=== PATIENT | female | born 1925 | race Caucasian/White ===

== ENCOUNTER 2016-09-04 03:36 | Inpatient (IN) | payer OTHER, MEDICARE ==
[~2016-09-04] VITALS: Ht 157.5 cm; Wt 49.2 kg
[2016-09-04 04:02] VITALS: BP 194/93; PULSE 63; RESP 16; TEMP 97.6; O2SAT 98
[2016-09-04] MEDS ORDERED: ROSU1TAB6 PO (04:11)
[2016-09-04] MEDS ORDERED: LEVO.05 PO (04:11)
[2016-09-04] MEDS ORDERED: ATEN25TA PO (04:11)
[2016-09-04] MEDS ORDERED: ASPI81CH25 PO (04:11)
--- NOTE | 2016-09-04 04:16 | PD ---
HPI Chief Complaint: Medical Clearance Time Seen by Provider: 04:12 Travel History International Travel<30 days: No Contact w/Intl Traveler<30days: No Traveled to known affect area: No History of Present Illness HPI 89-year-old white female presents to emergency department from [employer] for evaluation under and EXPARTE. The patient's daughter went to the courts and had an EXPARTE written up for psychological evaluation/dementia. The patient allegedly has been noncompliant. There is concern that she is not able to care for herself. Patient has a history of coronary artery disease, TIA, hypercholesterolemia, hypothyroidism and hypertension. According to EXPARTE the patient's mental status has been declining after having bypass surgery a few years ago. She states that she lives alone. She does not typically cook. She eats small frequent meals. The patient denies any medical complaints. She denies any suicidal or homicidal ideation. PFSH Past Medical History Narrative Medical Coronary artery disease, hypercholesterolemia, hypertension, hypothyroidism, dementia Tetanus Vaccination: Unknown Past Surgical History Narrative Surgical Coronary artery bypass graft Social History Alcohol Use: Yes Tobacco Use: No Substance Use: No Allergies-Medications (Allergen,Severity, Reaction): Coded Allergies: No Known Allergies (Unverified , 09/04/16) Reported Meds & Prescriptions Reported Meds & Active Scripts Active Cipro (Ciprofloxacin HCl) 250 Mg Tab 250 Mg PO BID Reported Aspirin Low Strength (Aspirin) 81 Mg Chew 81 Mg PO Rosuvastatin (Rosuvastatin Calcium) 10 Mg Tab 10 Mg PO HS Atenolol 25 Mg Tab 25 Mg PO DAILY Synthroid (Levothyroxine Sodium) 50 Mcg Tab 50 Mcg PO DAILY Review of Systems Except as stated in HPI: all other systems reviewed are Neg General / Constitutional: No: Fever, Chills Eyes: No: Blurred Vision, Visual changes HENT: No: Headaches, Neck Pain Cardiovascular: No: Chest Pain or Discomfort, Palpitations Respiratory: No: Cough, Shortness of Breath Gastrointestinal: No: Nausea, Vomiting Genitourinary: No: Dysuria, Hematuria Musculoskeletal: No: Edema, Pain Skin: No Rash Neurologic: No: Weakness, Headache Psychiatric: No: Anxiety, Depression, Suicidal Ideations, Disorder of Thought, Mood Disorder, Substance Abuse, Homicidal Ideation Physical Exam Narrative GENERAL: Well-nourished, well-developed patient. SKIN: Warm and dry. HEAD: Normocephalic and atraumatic. EYES: No scleral icterus. No injection or drainage. ENT: No nasal drainage noted. Mucous membranes pink. Airway patent. NECK: Supple, trachea midline. Moves head freely without obvious discomfort. CARDIOVASCULAR: Regular rate and rhythm without murmurs, gallops, or rubs. RESPIRATORY: Breath sounds equal bilaterally. No accessory muscle use. GASTROINTESTINAL: Abdomen soft, non-tender, nondistended. EXTREMITIES: No cyanosis or edema. BACK: Nontender without obvious deformity. No CVA tenderness. NEURO: Patient is alert and oriented. Patient knows the president, the year and date of the week. No sensorimotor deficits. Nonfocal. Normal speech. PSYCH: No delusions. No auditory or visual hallucinations. Data Data Last Documented VS Vital Signs Date Time Temp Pulse Resp B/P Pulse Ox O2 Delivery O2 Flow Rate FiO2 09/04/16 04:02 97.6 63 16 194/93 98 Orders Complete Blood Count With Diff (09/04/16 04:11) Comprehensive Metabolic Panel (09/04/16 04:11) Thyroid Stimulating Hormone (09/04/16 04:11) Urinalysis - C+S If Indicated (09/04/16 04:11) Electrocardiogram (09/04/16 04:11) Psych Screen (09/04/16 04:11) Drug Screen, Random Urine (09/04/16 04:11) Alcohol (Ethanol) (09/04/16 04:11) Urine Culture (09/04/16 04:40) Ciprofloxacin (Cipro) (09/04/16 05:45) Labs Laboratory Tests Test 09/04/16 09/04/16 04:27 04:40 White Blood Count 7.0 TH/MM3 Red Blood Count 4.55 MIL/MM3 Hemoglobin 13.1 GM/DL Hematocrit 39.1 % Mean Corpuscular Volume 86.0 FL Mean Corpuscular Hemoglobin 28.7 PG Mean Corpuscular Hemoglobin 33.4 % Concent Red Cell Distribution Width 14.8 % Platelet Count 174 TH/MM3 Mean Platelet Volume 10.2 FL Neutrophils (%) (Auto) 50.1 % Lymphocytes (%) (Auto) 34.8 % Monocytes (%) (Auto) 10.0 % Eosinophils (%) (Auto) 4.0 % Basophils (%) (Auto) 1.1 % Neutrophils # (Auto) 3.5 TH/MM3 Lymphocytes # (Auto) 2.4 TH/MM3 Monocytes # (Auto) 0.7 TH/MM3 Eosinophils # (Auto) 0.3 TH/MM3 Basophils # (Auto) 0.1 TH/MM3 CBC Comment DIFF FINAL Differential Comment Sodium Level 145 MEQ/L Potassium Level 3.9 MEQ/L Chloride Level 107 MEQ/L Carbon Dioxide Level 30.1 MEQ/L Anion Gap 8 MEQ/L Blood Urea Nitrogen 17 MG/DL Creatinine 1.05 MG/DL Estimat Glomerular Filtration 49 ML/MIN Rate Random Glucose 99 MG/DL Calcium Level 9.3 MG/DL Total Bilirubin 0.5 MG/DL Aspartate Amino Transf 21 U/L (AST/SGOT) Alanine Aminotransferase 16 U/L (ALT/SGPT) Alkaline Phosphatase 113 U/L Total Protein 7.4 GM/DL Albumin 3.7 GM/DL Thyroid Stimulating Hormone 3.930 uIU/ML 3rd Gen Ethyl Alcohol Level LESS THAN 3 MG/DL Urine Color YELLOW Urine Turbidity HAZY Urine pH 6.5 Urine Specific [place] 1.023 Urine Protein TRACE mg/dL Urine Glucose (UA) NEG mg/dL Urine Ketones NEG mg/dL Urine Occult Blood NEG Urine Nitrite NEG Urine Bilirubin NEG Urine Urobilinogen 2.0 MG/DL Urine Leukocyte Esterase LARGE Urine RBC 6 /hpf Urine WBC 44 /hpf Urine Squamous Epithelial 9 /hpf Cells Urine Transitional Epithelial <1 /hpf Cells Urine Bacteria RARE /hpf Urine Hyaline Casts 3 /lpf Urine Mucus FEW /lpf Microscopic Urinalysis Comment CULTURE INDICATED Urine Opiates Screen NEG Urine Barbiturates Screen NEG Urine Amphetamines Screen NEG Urine Benzodiazepines Screen NEG Urine Cocaine Screen NEG Urine Cannabinoids Screen NEG [facility] Medical Decision Making Medical Screen Exam Complete: Yes Emergency Medical Condition: Yes Medical Record Reviewed: Yes Interpretation(s) Laboratory Tests Test 09/04/16 09/04/16 04:27 04:40 White Blood Count 7.0 TH/MM3 Red Blood Count 4.55 MIL/MM3 Hemoglobin 13.1 GM/DL Hematocrit 39.1 % Mean Corpuscular Volume 86.0 FL Mean Corpuscular Hemoglobin 28.7 PG Mean Corpuscular Hemoglobin 33.4 % Concent Red Cell Distribution Width 14.8 % Platelet Count 174 TH/MM3 Mean Platelet Volume 10.2 FL Neutrophils (%) (Auto) 50.1 % Lymphocytes (%) (Auto) 34.8 % Monocytes (%) (Auto) 10.0 % Eosinophils (%) (Auto) 4.0 % Basophils (%) (Auto) 1.1 % Neutrophils # (Auto) 3.5 TH/MM3 Lymphocytes # (Auto) 2.4 TH/MM3 Monocytes # (Auto) 0.7 TH/MM3 Eosinophils # (Auto) 0.3 TH/MM3 Basophils # (Auto) 0.1 TH/MM3 CBC Comment DIFF FINAL Differential Comment Sodium Level 145 MEQ/L Potassium Level 3.9 MEQ/L Chloride Level 107 MEQ/L Carbon Dioxide Level 30.1 MEQ/L Anion Gap 8 MEQ/L Blood Urea Nitrogen 17 MG/DL Creatinine 1.05 MG/DL Estimat Glomerular Filtration 49 ML/MIN Rate Random Glucose 99 MG/DL Calcium Level 9.3 MG/DL Total Bilirubin 0.5 MG/DL Aspartate Amino Transf 21 U/L (AST/SGOT) Alanine Aminotransferase 16 U/L (ALT/SGPT) Alkaline Phosphatase 113 U/L Total Protein 7.4 GM/DL Albumin 3.7 GM/DL Thyroid Stimulating Hormone 3.930 uIU/ML 3rd Gen Ethyl Alcohol Level LESS THAN 3 MG/DL Urine Color YELLOW Urine Turbidity HAZY Urine pH 6.5 Urine Specific [place] 1.023 Urine Protein TRACE mg/dL Urine Glucose (UA) NEG mg/dL Urine Ketones NEG mg/dL Urine Occult Blood NEG Urine Nitrite NEG Urine Bilirubin NEG Urine Urobilinogen 2.0 MG/DL Urine Leukocyte Esterase LARGE Urine RBC 6 /hpf Urine WBC 44 /hpf Urine Squamous Epithelial 9 /hpf Cells Urine Transitional Epithelial <1 /hpf Cells Urine Bacteria RARE /hpf Urine Hyaline Casts 3 /lpf Urine Mucus FEW /lpf Microscopic Urinalysis Comment CULTURE INDICATED Urine Opiates Screen NEG Urine Barbiturates Screen NEG Urine Amphetamines Screen NEG Urine Benzodiazepines Screen NEG Urine Cocaine Screen NEG Urine Cannabinoids Screen NEG Differential Diagnosis MDM: High Differential diagnoses: Schizophrenia, schizoaffective disorder, bipolar, anxiety, depression, adjustment reaction, mood disorder NOS, ODD, depressive disorder NOS, dementia, dementia with agitation, psychosis NOS, substance induced mood disorder, intermittent explosive disorder, Asperger syndrome, infection,electrolyte abnormality, malingering. Narrative Course Mental health screening discussed with the patient. Psychiatric screen ordered. The patient is been medically cleared. Her urinalysis reveals a UTI. Patient is given Cipro 250 by mouth prescription for additional 3 days. This is medical clearance exam, EXPARTE, UTI Diagnosis Primary Impression: Medical clearance for psychiatric admission Additional Impressions: EXPARTE Urinary tract infection Qualified Code: N39.0 - Urinary tract infection without hematuria, site unspecified Med/Other Pt SpecificInfo: Prescription(s) given Scripts Ciprofloxacin (Cipro)250 Mg [id number] Mg PO BID #6 TAB Ref 0 Prov:Anil Pereyra MD 09/04/16 Condition: Stable Alejandro Saleh September 04, 2016 04:16
[2016-09-04 04:43] LABS: AUTOMATED NEUTROPHIL # 3.5 TH/MM3 (1.8-7.7); BASOPHIL # 0.1 TH/MM3 (0-0.2); BASOPHIL % 1.1 % (0.0-2.0); EOSINOPHIL # 0.3 TH/MM3 (0-0.4); HEMATOCRIT 39.1 % (35.0-46.0); HEMO FLAGS DIFF FINAL; LYMPH % 34.8 % (9.0-44.0); LYMPHOCYTE # 2.4 TH/MM3 (1.0-4.8); MEAN CORPUSCULAR HEMOGLOBIN 28.7 PG (27.0-34.0); MEAN CORPUSCULAR HGB CONC 33.4 % (32.0-36.0); NEUT % 50.1 % (16.0-70.0); PLATELET COUNT 174 TH/MM3 (150-450); RED BLOOD COUNT 4.55 MIL/MM3 (4.00-5.30); RED CELL DISTRIBUTION WIDTH 14.8 % (11.6-17.2)
[2016-09-04 04:57] LABS: ALT (GPT) 16 U/L (10-53); ANION GAP 8 MEQ/L (5-15); AST (GOT) 21 U/L (15-37); BICARBONATE 30.1 MEQ/L (21.0-32.0); BLOOD UREA NITROGEN 17 MG/DL (7-18); CHLORIDE 107 MEQ/L (98-107); GLOMERULAR FILTRATION RATE 49 ML/MIN (>89); POTASSIUM 3.9 MEQ/L (3.5-5.1); SODIUM (NA) 145 MEQ/L (136-145)
[2016-09-04 05:06] LABS: BACTERIA, URINE RARE /hpf; BLOOD, URINE NEG (NEG); COMMENT (UR) CULTURE INDICATED; CULTURE IF INDICATED CULTURE INDICATED; GLUCOSE,URINE NEG (NEG); HYALINE CAST, URINE 3 /lpf (RARE); KETONE, URINE NEG (NEG); MUCUS URINE FEW /lpf (OCC); NITRITE,URINE NEG (NEG); PH, URINE 6.5 (5.0-8.5); SQUAMOUS EPITHELIAL CELL URINE 9 /hpf (0-5); TRANSITIONAL EPI CELLS, URINE <1 /hpf; URINE COLOR YELLOW (YELLW/STRAW)
[2016-09-04 05:07] LABS: ALKALINE PHOSPHATASE 113 U/L (45-117); TOTAL BILIRUBIN ADULT 0.5 MG/DL (0.2-1.0)
[2016-09-04 05:09] LABS: AMPHETAMINE, URINE NEG (NEG); BARBITURATES, URINE NEG (NEG); COCAINE, URINE NEG (NEG)
[2016-09-04] MEDS ORDERED: CIPR250T52 PO (05:41)
[2016-09-04] MEDS ORDERED: CIPROFLOXACIN 250 MG TAB PO ONE (05:45)
[2016-09-04 07:08] VITALS: BP 206/91; PULSE 62; RESP 18; O2SAT 97
[2016-09-04] MEDS ORDERED: ATENOLOL 25 MG TAB PO ONE (07:45)
[2016-09-04] MEDS ORDERED: ATENOLOL 50 MG TAB PO ONE (07:45)
--- NOTE | 2016-09-04 08:52 | EKG ---
Date Performed: 09/04/2016 Time Performed: 04:29:28 PTAGE: 89 years EKG: Sinus rhythm LEFT VENTRICULAR HYPERTROPHY AND ST-T CHANGE ABNORMAL ECG NO PREVIOUS TRACING DOCTOR: Isaak Mi Interpretating Date/Time 09/04/2016 08:51:28
--- NOTE | 2016-09-04 11:12 | PD ---
History of Present Illness Chief Complaint: Medical Clearance Time Seen by Provider: 10:35 Travel History International Travel<30 Days: No Contact w/Intl Traveler<30days: No Known affected area: No Legal Status Legal Status: Ex Parte History of Present Illness: History of Present Illness HPI 89-year-old white female with reported history of dementia who presents to emergency department under and NOEMÍ. The petition for Ex Partho was initiated by her daughter, Katt. She presented copious documentation to the court presenting her concerns that her mother has been noncompliant with medication and treatment, is not eating and is malnourished, not taking care of her hygiene, not allowing the daughter entrance to her home, is giving her money away to different scammers , and she is fearful that she will hurt someone while she is driving. According to ANSELMOE the patient's mental status has been declining after having bypass surgery a few years ago. Patient is seen in main Ed. Awake , alert and oriented. " September 04, 2016. She is casually and neatly dressed in shorts and sandals with appropriate hygiene. Her speech is clear. She is angry over being here in the hospital and states " I have taken care of myself since I was 18 years old , who says I can't take care of myself now?". She is angry that her doctor wants to take her drivers license away as she believes she can still drive. There is no psychosis and no ag and she has not been agitated. There is documentation in the chart that indicated=s that a neurologist has initiated paperwork to terminate her driving privileges. radha teague has also provided documentation providing a dx of dementia and that her score on a MMSE was a 19. No medication was initiated at the time and his recommendation was that she be placed in a facility. Telephone call to her daughter who filed Ex Partho. 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 " She is demanding that [facility] her mother in a memory unit and that she is concerned that her mother will harm someone while she is driving. " She needs to be admitted for 20 days of care in a memory unit". She has not disabled the car and has not taken her keys away. When I suggest these options the daughter becomes irate and states " She will chai me and take me to court or she will call the [employer] dealer and have her car repaired. When I ask regarding having a home health aide or dragline operator in the home she disagrees with this suggestion sating " She will not allow anyone in her home". The daughter insists that her mother is a danger to herself due to self neglect as well as a danger to others by driving. PFSH Past Medical History Hypertension: Yes Immunizations Current: Yes Thyroid Disease: Yes Tetanus Vaccination: Unknown : 3 Para: 3 Past Surgical History Cardiac Surgery: Yes Psychiatric History Psychiatric History Hx Psychiatric Treatment: negative History of Inpatient Treatment: No Guns or firearms in home: No Social History female. Has been x 2. since 1990. Worked for [employer]. Lives alone. Hx Alcohol Use: Yes Hx Tobacco Use: No Hx Substance Use: No Hx of Substance Use Treatment: No Family Psychiatric History Negative Allergies-Medications (Allergen,Severity, Reaction): Coded Allergies: No Known Allergies (Unverified , 09/04/16) Reported Meds & Prescriptions Reported Meds & Active Scripts Active Cipro (Ciprofloxacin HCl) 250 Mg Tab 250 Mg PO BID Reported Aspirin Low Strength (Aspirin) 81 Mg Chew 81 Mg PO Rosuvastatin (Rosuvastatin Calcium) 10 Mg Tab 10 Mg PO HS Atenolol 25 Mg Tab 25 Mg PO DAILY Synthroid (Levothyroxine Sodium) 50 Mcg Tab 50 Mcg PO DAILY Review of Systems Except as stated in HPI: all other systems reviewed are Neg Exam Alert: Yes [place]: Person, Place, Date, Situation (ox4) Mood: Anxious Affect: Appropriate Speech: Clear, Logical Eye Contact: Normal Memory Intact: Comment (not formally tetsed in main ed setting) Hallucinations: Other (negative) Delusions: No Suicidal: Ideation (deneis any) Homicidal: Ideation (deneis any) Insight/Judgement Poor. poor MDM Medical Decision Making Medical Record Reviewed: Yes Assessment/Plan 89 year old female with no previous psychiatric history and recent dx of dementia who is under an ex parte order . The EX Parte alleges that she has been unable to care for herself as well as a potential danger to others as she refuses to give up her driving privileges. Patient is currently on no medication and may not have been taking her thyroid or antihypertensive medication. She has a UTI as well. At this time she will be admitted for further evaluation and monitoring and to determine safety . Orders Complete Blood Count With Diff (09/04/16 04:11) Comprehensive Metabolic Panel (09/04/16 04:11) Thyroid Stimulating Hormone (09/04/16 04:11) Urinalysis - C+S If Indicated (09/04/16 04:11) Electrocardiogram (09/04/16 04:11) Psych Screen (09/04/16 04:11) Drug Screen, Random Urine (09/04/16 04:11) Alcohol (Ethanol) (09/04/16 04:11) Urine Culture (09/04/16 04:40) Ciprofloxacin (Cipro) (09/04/16 05:45) Atenolol (Tenormin) (09/04/16 07:45) Atenolol (Tenormin) (09/04/16 07:45) Diet Regular Basic (09/04/16 Breakfast) Results Vital Signs Date Time Temp Pulse Resp B/P Pulse Ox O2 Delivery O2 Flow Rate FiO2 09/04/16 07:08 62 18 206/91 97 Room Air 09/04/16 04:02 97.6 63 16 194/93 98 Laboratory Tests Test 09/04/16 09/04/16 04:27 04:40 White Blood Count 7.0 Red Blood Count 4.55 Hemoglobin 13.1 Hematocrit 39.1 Mean Corpuscular Volume 86.0 Mean Corpuscular Hemoglobin 28.7 Mean Corpuscular Hemoglobin 33.4 Concent Red Cell Distribution Width 14.8 Platelet Count 174 Mean Platelet Volume 10.2 Neutrophils (%) (Auto) 50.1 Lymphocytes (%) (Auto) 34.8 Monocytes (%) (Auto) 10.0 Eosinophils (%) (Auto) 4.0 Basophils (%) (Auto) 1.1 Neutrophils # (Auto) 3.5 Lymphocytes # (Auto) 2.4 Monocytes # (Auto) 0.7 Eosinophils # (Auto) 0.3 Basophils # (Auto) 0.1 CBC Comment DIFF FINAL Differential Comment Sodium Level 145 Potassium Level 3.9 Chloride Level 107 Carbon Dioxide Level 30.1 Anion Gap 8 Blood Urea Nitrogen 17 Creatinine 1.05 Estimat Glomerular Filtration 49 Rate Random Glucose 99 Calcium Level 9.3 Total Bilirubin 0.5 Aspartate Amino Transf 21 (AST/SGOT) Alanine Aminotransferase 16 (ALT/SGPT) Alkaline Phosphatase 113 Total Protein 7.4 Albumin 3.7 Thyroid Stimulating Hormone 3.930 3rd Gen Ethyl Alcohol Level LESS THAN 3 Urine Color YELLOW Urine Turbidity HAZY Urine pH 6.5 Urine Specific Issue 1.023 Urine Protein TRACE Urine Glucose (UA) NEG Urine Ketones NEG Urine Occult Blood NEG Urine Nitrite NEG Urine Bilirubin NEG Urine Urobilinogen 2.0 Urine Leukocyte Esterase LARGE Urine RBC 6 Urine WBC 44 Urine Squamous Epithelial 9 Cells Urine Transitional Epithelial <1 Cells Urine Bacteria RARE Urine Hyaline Casts 3 Urine Mucus FEW Microscopic Urinalysis Comment CULTURE INDICATED Urine Opiates Screen NEG Urine Barbiturates Screen NEG Urine Amphetamines Screen NEG Urine Benzodiazepines Screen NEG Urine Cocaine Screen NEG Urine Cannabinoids Screen NEG Date/Time Procedure Status Source Growth 09/04/16 04:40 Urine Culture Received Urine Random Urine Pending Diagnosis Primary Impression: EXPARTE Additional Impression: Dementia without behavioral disturbance Admitting Information Admitting Physician Requests: Admit Prescriptions Ciprofloxacin (Cipro)250 Mg [id number] Mg PO BID #6 TAB Ref 0 Prov:Anil Pereyra MD 09/04/16 Condition: Stable Problem Qualifiers Lorraine Delarosa [facility] September 04, 2016 11:11 unspecified Lorraine Delarosa [facility] September 04, 2016 11:11
[2016-09-04] MEDS ORDERED: ALUMINUM/MAGNESIUM/SIMETH 30 ML CUP PO PRN (12:45)
[2016-09-04] MEDS ORDERED: MAGNESIUM HYDROXIDE SUSP 30 ML CUP PO PRN (12:45)
[2016-09-04] MEDS ORDERED: ACETAMINOPHEN 325 MG TAB PO PRN (12:45)
--- NOTE | 2016-09-04 14:07 | PD.CONS ---
HPI Service [facility] Consult Requested By Ruiz Chávez MD Reason for Consult Uncontrolled hypertension and UTI Primary Care Physician Non-Staff Diagnoses: History of Present Illness This is an 89-year-old female past medical history of dementia reported by her daughter, hypertension, and hypothyroidism who presented to emergency department under an EXPARTE that was initiated by her daughter, Katt due to concerns that patient has not been compliant with her medication, malnourished, not taking care of herself, not allowing her daughter to enter home, giving money away to [employer] fearful that she would hurt someone while driving. [facility] consulted for medical management. Patient was seen on the psychiatric floor. She was clean and well groomed with no odor noted. Patient stated that she has been taking her blood pressure medication as indicated. She stated that she never missed any of her medication dosage. When I asked patient if she knew why she was here. She stated no that she does not know why she is here but she should be released soon. Patient stated that she has been taking care of herself since she was a child and that she is able to still take care of herself. Patient stated other than thyroid and high blood pressure problems she also has osteoarthritis in her ankles. Review of Systems Constitutional: DENIES: Diaphoretic episodes, Fatigue, Fever, Weight gain, Weight loss, Chills, Dizziness, Change in appetite, Night Sweats Endocrine: DENIES: Abnorml menstrual pattern, Heat/cold intolerance, Polydipsia , Polyuria, Polyphagia Eyes: DENIES: Blurred vision, Diplopia, Eye inflammation, Eye pain, Vision loss , Photosensitivity, Double Vision Ears, nose, mouth, throat: DENIES: Tinnitus, Hearing loss, Vertigo, Nasal discharge, Oral lesions, Throat pain, Hoarseness, Ear Pain, Running Nose, Epistaxis, Sinus Pain, Toothache, Odynophagia Respiratory: DENIES: Apneas, Cough, Snoring, Wheezing, Hemoptysis, Sputum production, Shortness of breath Cardiovascular: DENIES: Chest pain, Palpitations, Syncope, Dyspnea on Exertion , PND, Lower Extremity Edema, Orthopnea, Claudication Gastrointestinal: DENIES: Abdominal pain, Black stools, Bloody stools, Constipation, Diarrhea, Nausea, Vomiting, Difficulty Swallowing, Anorexia Genitourinary: DENIES: Abnormal vaginal bleeding, Dysmenorrhea, Dyspareunia, Sexual dysfunction, Urinary frequency, Urinary incontinence, Urgency, Hematuria , Dysuria, Nocturia, Vaginal discharge Musculoskeletal: DENIES: Joint pain, Muscle aches, Stiffness, Joint Swelling, Back pain, Neck pain Integumentary: DENIES: Abnormal pigmentation, Pruritus, Rash, Nail changes, Breast masses, Breast skin changes, Nipple discharge Hematologic/lymphatic: DENIES: Bruising, Lymphadenopathy Immunologic/allergic: DENIES: Eczema, Urticaria Neurologic: DENIES: Abnormal gait, Headache, Localized weakness, Paresthesias, Seizures, Speech Problems, Tremor, Poor Balance Psychiatric: DENIES: Anxiety, Confusion, Mood changes, Depression, Hallucinations, Agitation, Suicidal Ideation, Homicidal Ideation, Delusions Past Family Social History Allergies: Coded Allergies: No Known Allergies (Unverified , 09/04/16) Past Medical History Hypothyroidism Hypertension Osteoarthritis Hyperlipidemia Questionable dementia Chronic heart murmur per patient aortic stenosis sounds familiar Past Surgical History Thyroid surgery Reported Medications Cipro (Ciprofloxacin HCl) 250 Mg Tab 250 Mg PO BID Reported Aspirin Low Strength (Aspirin) 81 Mg Chew 81 Mg PO Rosuvastatin (Rosuvastatin Calcium) 10 Mg Tab 10 Mg PO HS Atenolol 25 Mg Tab 25 Mg PO DAILY Synthroid (Levothyroxine Sodium) 50 Mcg Tab 50 Mcg PO DAILY Active Ordered Medications Current Medications Ciprofloxacin (Cipro) 250 mg ONCE ONCE PO Last administered on 09/04/16 06:19 ; Start 09/04/16 at 05:45; Stop 09/04/16 at 05:46; Status DC Atenolol (Tenormin) 50 mg ONCE ONCE PO ; Start 09/04/16 at 07:45; Stop at 07:45; Status DC Atenolol (Tenormin) 25 mg ONCE ONCE PO Last administered on 09/04/16 08:37; Start 09/04/16 at 07:45; Stop 09/04/16 at 07:46; Status DC Acetaminophen (Tylenol) 650 mg Q4H PRN PO Pain 1-5 or Temp >101F; Start at 12:45 Magnesium Hydroxide (Milk Of Magnesia Liq) 30 ml DAILY PRN PO CONSTIPATION; Start 09/04/16 at 12:45 Al Hydrox/Mg Hydrox/Simethicone (Mag-Al Plus Susp Liq) 30 ml Q6H PRN PO DYSPEPSIA; Start 09/04/16 at 12:45 Family History Noncontributory Social History Patient lives at home alone but she is brought here due to ex parte. Denying tobacco, alcohol or illicit drug use. Physical Exam Vital Signs Vital Signs Date Time Temp Pulse Resp B/P Pulse Ox O2 Delivery O2 Flow Rate FiO2 09/04/16 07:08 62 18 206/91 97 Room Air 09/04/16 04:02 97.6 63 16 194/93 98 Physical Exam GENERAL: This is a well-nourished, well-developed patient, in no apparent distress. SKIN: No rashes, ecchymoses or lesions. Cool and dry. HEAD: Atraumatic. Normocephalic. No temporal or scalp tenderness. EYES: Pupils equal round and reactive. Extraocular motions intact. No scleral icterus. No injection or drainage. ENT: Nose without bleeding, purulent drainage or septal hematoma. Throat without erythema, tonsillar hypertrophy or exudate. Uvula midline. Airway patent. Scar noted. NECK: Trachea midline. No JVD or lymphadenopathy. Supple, nontender, no meningeal signs. CARDIOVASCULAR: Regular rate and rhythm without gallops, or rubs. Positive 4 / 6 systolic heart murmur RESPIRATORY: Clear to auscultation. Breath sounds equal bilaterally. No wheezes , rales, or rhonchi. GASTROINTESTINAL: Abdomen soft, non-tender, nondistended. No hepato-splenomegaly , or palpable masses. No guarding. MUSCULOSKELETAL: Extremities without clubbing, cyanosis, or edema. No joint tenderness, effusion, or edema noted. No calf tenderness. Negative Homans sign bilaterally. NEUROLOGICAL: Awake and alert. Cranial nerves II through XII intact. Motor and sensory grossly within normal limits. Five out of 5 muscle strength in all muscle groups. Normal speech. Laboratory Laboratory Tests Test 09/04/16 09/04/16 04:27 04:40 White Blood Count 7.0 Red Blood Count 4.55 Hemoglobin 13.1 Hematocrit 39.1 Mean Corpuscular Volume 86.0 Mean Corpuscular Hemoglobin 28.7 Mean Corpuscular Hemoglobin 33.4 Concent Red Cell Distribution Width 14.8 Platelet Count 174 Mean Platelet Volume 10.2 Neutrophils (%) (Auto) 50.1 Lymphocytes (%) (Auto) 34.8 Monocytes (%) (Auto) 10.0 Eosinophils (%) (Auto) 4.0 Basophils (%) (Auto) 1.1 Neutrophils # (Auto) 3.5 Lymphocytes # (Auto) 2.4 Monocytes # (Auto) 0.7 Eosinophils # (Auto) 0.3 Basophils # (Auto) 0.1 CBC Comment DIFF FINAL Differential Comment Sodium Level 145 Potassium Level 3.9 Chloride Level 107 Carbon Dioxide Level 30.1 Anion Gap 8 Blood Urea Nitrogen 17 Creatinine 1.05 Estimat Glomerular Filtration 49 Rate Random Glucose 99 Calcium Level 9.3 Total Bilirubin 0.5 Aspartate Amino Transf 21 (AST/SGOT) Alanine Aminotransferase 16 (ALT/SGPT) Alkaline Phosphatase 113 Total Protein 7.4 Albumin 3.7 Thyroid Stimulating Hormone 3.930 3rd Gen Ethyl Alcohol Level LESS THAN 3 Urine Color YELLOW Urine Turbidity HAZY Urine pH 6.5 Urine Specific [place] 1.023 Urine Protein TRACE Urine Glucose (UA) NEG Urine Ketones NEG Urine Occult Blood NEG Urine Nitrite NEG Urine Bilirubin NEG Urine Urobilinogen 2.0 Urine Leukocyte Esterase LARGE Urine RBC 6 Urine WBC 44 Urine Squamous Epithelial 9 Cells Urine Transitional Epithelial <1 Cells Urine Bacteria RARE Urine Hyaline Casts 3 Urine Mucus FEW Microscopic Urinalysis Comment CULTURE INDICATED Urine Opiates Screen NEG Urine Barbiturates Screen NEG Urine Amphetamines Screen NEG Urine Benzodiazepines Screen NEG Urine Cocaine Screen NEG Urine Cannabinoids Screen NEG Date/Time Procedure Status Source Growth 09/04/16 04:40 Urine Culture Received Urine Random Urine Pending Result Diagram: 09/04/167 09/04/167 Assessment and Plan Assessment and Plan 89-year-old female with past medical history hypertension, hyperlipidemia, hypothyroidism, and osteoarthritis ExParte -Being managed by psych. Hypertension -May be secondary to patient being upset for being forced to be emitted in the hospital. -I do not see a follow-up blood pressure readings since 7:00 this morning. -Will continue her atenolol. Will start clonidine 0.1 mg by mouth every 6 hours when necessary for systolic blood pressure greater than 180. -If blood pressure continues to be elevated will add a schedule antihypertensive medication. UTI -Suggested by UA. Patient was given a dose of Cipro. Will try to avoid Cipro due to resistance. -Start Bactrim DS twice a day pending urine cultures. -At the moment patient is asymptomatic. Questionable dementia -Per history from family. -If patient does have dementia it is very mild. She has pretty good memory at the moment. -To be evaluated as outpatient. Code Status full Discussed Condition With patient Suly Kamara MD September 04, 2016 14:07
[2016-09-04 14:14] VITALS: BP 180/81; PULSE 63; RESP 18; TEMP 97.8; O2SAT 97
[2016-09-04] MEDS: cloNIDine HCL 0.1 MG TAB PO PRN (14:40)
[2016-09-04] MEDS ORDERED: HALOPERIDOL LACTATE 5 MG/ML AMP IM STA (14:56)
[2016-09-04 17:35] VITALS: BP 102/52; PULSE 62; RESP 16
[2016-09-04] MEDS ORDERED: HALOPERIDOL LACTATE 5 MG/ML AMP IM PRN (20:00)
[2016-09-04] MEDS: SULFAMETHOXAZOLE-TRIMETHOPRIM DS 800-160 MG TAB PO SCH ×2 (20:50→20:52)
[2016-09-04] MEDS: ATORVASTATIN 20 MG TAB PO SCH (20:50)
[2016-09-05 05:08] VITALS: BP 111/58; PULSE 71; RESP 18; TEMP 97.4; O2SAT 98
[2016-09-05] MEDS: LEVOTHYROXINE SODIUM 50 MCG TAB PO SCH (05:58)
[2016-09-05 08:14] LABS: ANION GAP 8 MEQ/L (5-15); BICARBONATE 29.1 MEQ/L (21.0-32.0); BLOOD UREA NITROGEN 20 MG/DL (7-18); CHLORIDE 106 MEQ/L (98-107); GLOMERULAR FILTRATION RATE 56 ML/MIN (>89); POTASSIUM 3.8 MEQ/L (3.5-5.1); SODIUM (NA) 143 MEQ/L (136-145)
[2016-09-05 08:40] LABS: FREE T4 1.12 NG/DL (0.76-1.46); HDL CHOLESTEROL 55.1 MG/DL (40.0-60.0); LDL CHOLESTEROL 53 MG/DL (0-99)
[2016-09-05] MEDS: ATENOLOL 25 MG TAB PO SCH (09:16)
[2016-09-05] MEDS: ASPIRIN EC 81 MG TABEC PO SCH (09:16)
[2016-09-05] MEDS: SULFAMETHOXAZOLE-TRIMETHOPRIM DS 800-160 MG TAB PO SCH (09:21)
[2016-09-05] MEDS: CHOLECALCIFEROL (VIT D3) 1000 UNIT TAB PO SCH (09:30)
[2016-09-05] MEDS ORDERED: diphenhydrAMINE HCL 50 MG CAP PO PRN (10:00)
[2016-09-05] MEDS ORDERED: ALUMINUM/MAGNESIUM/SIMETH 30 ML CUP PO PRN (10:00)
[2016-09-05] MEDS ORDERED: MAGNESIUM HYDROXIDE SUSP 30 ML CUP PO PRN (10:00)
[2016-09-05] MEDS ORDERED: ACETAMINOPHEN 325 MG TAB PO PRN (10:00)
[2016-09-05 10:05] VITALS: BP 141/70; PULSE 62; RESP 16; TEMP 96.6; O2SAT 96
--- NOTE | 2016-09-05 10:20 | HHI.HP ---
Provisional Diagnosis Admission Date September 04, 2016 at 12:37 [place] I. Late onset Alzheimer's disease without behavioral disturbance [place] 30.1 Certification of Person's Competence To Provide Express and Informed Consent I have personally examined Karin Schultz , a person being served at [facility] on, Sep 05, 2016 10:03. Express and informed consent means consent voluntarily given in writing, by a competent person, after sufficient explanation and disclosure of the subject matter involved to enable the person to make a knowing and willful decision without any element of force, fraud, deceit, duress, or other form of constraint or coercion. This person is 18 years of age or older, is not now known to be incompetent to consent to treatment with a guardian advocate, and does not have a health care surrogate or proxy currently making medical treatment decisions. I have found this person to be one of the following: [] Competent to provide express and informed consent, as defined above, for voluntary admission to this facility and is competent to provide express and informed consent for treatment. He/she has the consistent capacity to make well reasoned, willful, and knowing decisions concerning his or her medical or mental health treatment. The person fully and consistently understands the purpose of the admission for examination/placement and is fully capable of personally exercising all rights assured [place] [xx] Incompetent to provide express and informed consent to voluntary admission , and this is incompetent to provide express and informed consent to treatment. The person must be transferred to involuntary status and a petition for a guardian advocate filed with the Circuit Court. [] Refusing to provide express and informed consent to voluntary admission but is competent to provide express and informed consent for treatment. The person must be discharged or transferred to involuntary status. Form shall be completed within 24 hours of a person's arrival at the receiving facility and filed in the clinical record of each person: 1. Admitted on a voluntary basis 2. Permitted to provide express and informed consent to his/her own treatment 3. Allowed to transfer from involuntary to voluntary status 4. Prior to permitting a person to consent to his or her own treatment after having been previously found incompetent to consent to treatment. History of Present Illness Capacity: Lacks Capacity HPI Patient is an 89-year-old white female who comes here under an ex parte follow- up by her daughter and signed by [employer] from [facility]. The document reviewed. Essentially stating that patient show deterioration in her behavior ability to care for herself during risky behaviors with people in the neighborhood. Continuing her driving. And also mentioning gambling addiction. Patient seen screened in the ED urine toxicology negative, however UA was positive patient will be treated for UTI. At the present time patient sitting quietly in the day room RN present throughout session patient is a calm cooperative is somewhat guarded in feisty white female appears younger than her stated age. Patient is oriented to person place she noises she is an [facility] with his [facility]. She knows that is 2016 and September 05. She no she lives in [place]. She shows some mild confusion as to what led to this hospitalization. It appears per the ex parte the patient fell some Time ago and she seems to be somewhat confused with that time line. She denies suicidality homicidality voices or visions. She denies any prior psychiatric contact hospitalization his psychotropic medication she denies any drug use. Though vaguely acknowledges some past alcohol use including an occasional glass of wine after dinner at this time. She appears quite adamant about wanting to live on her own driving her car and taking care of herself. 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 She states she had 3 children a daughter and 2 sons. The 2 sons are the daughter lives in [place] and appears to have done the ex parte. Patient does deny any physical or sexual abuse. Or any significant trauma. In any event at the present time patient showing some vague diffuse confusion irritability and perhaps confabulation. We need to get further information concerning this lady. At this time I feel she does not have capacity thus I will do first opinion petition supporting [place] act I will also do a health care surrogate and guardian advocate. We will have the nursing staff contact patient's daughter to arrange for a family meeting tomorrow morning. We'll also the hospitalist consult with us Review of Systems Endocrine: DENIES: Abnorml menstrual pattern, Heat/cold intolerance, Polydipsia , Polyuria, Polyphagia Eyes: DENIES: Blurred vision, Diplopia, Eye inflammation, Eye pain, Vision loss , Photosensitivity, Double Vision Respiratory: DENIES: Apneas, Cough, Snoring, Wheezing, Hemoptysis, Sputum production, Shortness of breath Cardiovascular: DENIES: Chest pain, Palpitations, Syncope, Dyspnea on Exertion , PND, Lower Extremity Edema, Orthopnea, Claudication Gastrointestinal: DENIES: Abdominal pain, Black stools, Bloody stools, Constipation, Diarrhea, Nausea, Vomiting, Difficulty Swallowing, Anorexia Genitourinary: DENIES: Abnormal vaginal bleeding, Dysmenorrhea, Dyspareunia, Sexual dysfunction, Urinary frequency, Urinary incontinence, Urgency, Hematuria , Dysuria, Nocturia, Vaginal discharge Musculoskeletal: DENIES: Joint pain, Muscle aches, Stiffness, Joint Swelling, Back pain, Neck pain Integumentary: DENIES: Abnormal pigmentation, Pruritus, Rash, Nail changes, Breast masses, Breast skin changes, Nipple discharge Hematologic/lymphatic: DENIES: Bruising, Lymphadenopathy Immunologic/allergic: DENIES: Eczema, Urticaria Neurologic: DENIES: Abnormal gait, Headache, Localized weakness, Paresthesias, Seizures, Speech Problems, Tremor, Poor Balance Psychiatric: DENIES: Anxiety, Confusion, Mood changes, Depression, Hallucinations, Agitation, Suicidal Ideation, Homicidal Ideation, Delusions Past Psych History Psychological trauma history Patient denies any physical or sexual abuse Violence risk - others (6 mos) Denies Violence risk - self (6 mos) Denies Substance Abuse History Drugs/Alcohol past 12 months Is vague information about possibly drinking some wine in the evening Past Family Social History Coded Allergies: No Known Allergies (Unverified , 09/04/16) Active Scripts Ciprofloxacin (Cipro)250 Mg [id number] Mg PO BID #6 TAB Ref 0 Prov:Anil Pereyra MD 09/04/16 Reported Medications Aspirin (Aspirin Low Strength)81 Mg Chew81 Mg PO 09/04/16 Rosuvastatin 10 Mg Tab10 Mg PO HS Ref 0 09/04/16 Atenolol 25 Mg Tab25 Mg PO DAILY #30 TAB 09/04/16 Levothyroxine (Synthroid)50 Mcg Tab50 Mcg PO DAILY #30 TAB Ref 0 09/04/16 Current Medications Medications (Trade) Dose Ordered Sig/Valarie Route Start Time Stop Time Status Last Admin (Tylenol) 650 mg Q4H PRN PO 09/04/16 12:45 (Milk Of Magnesia Liq) 30 ml DAILY PRN PO 09/04/16 12:45 (Mag-Al Plus Susp Liq) 30 ml Q6H PRN PO 09/04/16 12:45 (Catapres) 0.1 mg Q6H PRN PO 09/04/16 14:15 09/04/16 14:40 (Tenormin) 25 mg DAILY PO 09/05/16 09:00 09/05/16 09:16 (Synthroid) 50 mcg DAILY@06 PO 09/05/16 06:00 09/05/16 05:58 (Lipitor) 20 mg HS PO 09/04/16 21:00 09/04/16 20:50 (Bactrim Ds 800-160 Mg) 1 tab Q12HR PO 09/04/16 21:00 09/05/16 09:21 (Ecotrin Ec) 81 mg DAILY PO 09/05/16 09:00 09/05/16 09:16 (Haldol Inj) 2 mg Q6H PRN IM 09/04/16 20:00 (Vitamin D3) 2,000 units DAILY PO 09/05/16 09:30 09/05/16 09:30 (Benadryl) 50 mg HS PRN PO 09/05/16 10:00 UNV (Tylenol) 650 mg Q4H PRN PO 09/05/16 10:00 UNV (Milk Of Magnesia Liq) 30 ml DAILY PRN PO 09/05/16 10:00 UNV (Mag-Al Plus Susp Liq) 30 ml Q6H PRN PO 09/05/16 10:00 UNV (Atarax) 50 mg Q6H PRN PO 09/05/16 10:00 UNV Family History She denies any mental health history addictions in the family Social History Patient was by herself appears to have supportive daughter locally Patient's Strengths (min. 2) Patient verbal able [facility] has supportive family Physical Exam Patient seen screen in ED exam reviewed and agreed with patient sitting quietly in the day room in no respiratory distress his calm cooperative moves all 4 extremities without difficulty Vital Signs Vital Signs Date Time Temp Pulse Resp B/P Pulse Ox O2 Delivery O2 Flow Rate FiO2 09/05/16 05:08 97.4 71 18 111/58 98 09/04/16 07:08 Room Air I/O 09/04/16 09/04/16 09/05/16 08:00 16:00 00:00 Intake Total 720 ml Balance 720 ml Mental Status Examination Alert fairly well oriented white female appears younger than stated age of 89 years. She is calm cooperative is somewhat guarded with fair eye contact Appearance Clean neatly Speech: Unremarkable, Circumstantial (mildly), Tangential (mildly) Orientation: Person, Place, Time, Date, Situation (noses the psychiatric unit) Memory: Unremarkable Thought Process: Linear Thought Content: Unremarkable Language Fair Fund of Knowledge Fair Hallucination Type: None (denies) Attention and Concentration: Other (fair) Suicidal Ideation: No (denies) Previous Suicide Attempts: No (denies) Homicidal Ideation: No (denies) Previous Homicide Attempts: No (denies) Insight: Poor Judgment: Poor Affect: Other (slight decreased range and intensity) Mood: Euthymic (to mildly irritable) Motor Activity: Normal gait (ET to assess) Assessment & Plan Problem List: (1) Late onset Alzheimer's disease without behavioral disturbance ICD Code: G30.1 Assessment & Plan Estimated LOS: 5-7 days this time patient meets criteria for further observation and assessment I will do first opinion requests a second opinion. It appears daughter is power of litigation attorney associate thus I'll also request a health care surrogate and guardian advocate attempt to meet with patient's daughter tomorrow morning, that hospice consult will less intrusive continue her schedule medications per the medications to radiation Discharge Planning Be determined Request HC Surrog/Guard Advoc?: Yes Dennis Major MD Sep 05, 2016 10:20
[2016-09-05] MEDS ORDERED: LORazepam 2 MG/ML VIAL IM PRN (10:45)
--- NOTE | 2016-09-05 16:38 | HHI.PR ---
Subjective Remarks Follow-up on patient with dementia, hypertension and hypothyroidism. Patient seen and examined today. Patient states she feels well and denies any acute medical complaints. No discomfort or pain. Denies any fever, chills, nausea or vomiting. Denies any shortness of breath, chest pain or abdominal pain. Objective Vitals Vital Signs Date Time Temp Pulse Resp B/P Pulse Ox O2 Delivery O2 Flow Rate FiO2 09/05/16 05:08 97.4 71 18 111/58 98 09/04/16 17:35 62 16 102/52 I/O 09/04/16 09/04/16 09/04/16 09/05/16 09/05/16 09/05/16 07:00 15:00 23:00 07:00 15:00 23:00 Intake Total 720 ml 240 ml 600 ml Balance 720 ml 240 ml 600 ml Intake Oral 720 ml 240 ml 600 ml # Voids 1 1 2 Result Diagram: 09/04/16 0427 09/05/16 0612 Objective Remarks GENERAL: This is a well-nourished, well-developed patient, in no apparent distress. Patient appears much younger than stated age. SKIN: No rashes, ecchymoses or lesions. Cool and dry. HEAD: Atraumatic. Normocephalic. EYES: Extraocular motions intact. No scleral icterus. No injection or drainage. CARDIOVASCULAR: Regular rate and rhythm without gallops, or rubs. Positive 4 / 6 systolic heart murmur RESPIRATORY: Clear to auscultation. Breath sounds equal bilaterally. No wheezes , rales, or rhonchi. GASTROINTESTINAL: Abdomen soft, non-tender, nondistended. No hepato-splenomegaly , or palpable masses. No guarding. MUSCULOSKELETAL: Extremities without clubbing, cyanosis, or edema. No joint tenderness, effusion, or edema noted. No calf tenderness. NEUROLOGICAL: Awake and alert. Able to move all extremities. Normal speech. Medications and IVs Current Medications Medications (Trade) Dose Ordered Sig/Valarie Route Start Time Stop Time Status Last Admin (Tylenol) 650 mg Q4H PRN PO 09/04/16 12:45 (Milk Of Magnesia Liq) 30 ml DAILY PRN PO 09/04/16 12:45 (Mag-Al Plus Susp Liq) 30 ml Q6H PRN PO 09/04/16 12:45 (Catapres) 0.1 mg Q6H PRN PO 09/04/16 14:15 09/04/16 14:40 (Tenormin) 25 mg DAILY PO 09/05/16 09:00 09/05/16 09:16 (Synthroid) 50 mcg DAILY@06 PO 09/05/16 06:00 09/05/16 05:58 (Lipitor) 20 mg HS PO 09/04/16 21:00 09/04/16 20:50 (Bactrim Ds 800-160 Mg) 1 tab Q12HR PO 09/04/16 21:00 09/05/16 09:21 (Ecotrin Ec) 81 mg DAILY PO 09/05/16 09:00 09/05/16 09:16 (Haldol Inj) 2 mg Q6H PRN IM 09/04/16 20:00 (Vitamin D3) 2,000 units DAILY PO 09/05/16 09:30 09/05/16 09:30 (Benadryl) 50 mg HS PRN PO 09/05/16 10:00 (Atarax) 50 mg Q6H PRN PO 09/05/16 10:00 (Ativan) 0.5 mg Q6H PRN PO 09/05/16 10:45 (Ativan Inj) 0.5 mg Q6H PRN IM 09/05/16 10:45 A/P Assessment and Plan 89-year-old female with past medical history hypertension, hyperlipidemia, hypothyroidism, and osteoarthritis. [facility] consulted for medical management. ExParte Dementia - Management per psychiatric team Hypertension/CAD - May be secondary to patient being upset for being forced to be admitted in the hospital. - BP controlled at present, 111/58 - Continue with atenolol 25 mg daily - ASA daily - Clonidine when necessary for systolic blood pressure greater than 180. UTI - Suggested by UA. Patient was given a dose of Cipro. Will try to avoid Cipro due to resistance. - UCX shows 50-100,000 mixed ricardo, likely contaminant - Discontinue Bactrim - At the moment patient is asymptomatic. - Repeat UA Hypothyroidism - TSH 3.930 and 6.100 - Free T4 1.12 - Continue on levothyroxine 50 g daily - Recommend repeat labs in 6-8 weeks with PCP KRISTI - Mild - Resolved - avoid nephrotoxic agents - encourage po intake Dyslipidemia - Continue on Lipitor 20 mg daily Vitamin D deficiency - Vit D level 10.7 - Begin by mouth supplementation - Recommend follow-up with repeat vitamin D levels as an outpatient with PCP Discussed with patient and Dr. Erendira Busby,Gabriella ANN Sep 05, 2016 16:38
[2016-09-05 17:15] LABS: HEMOGLOBIN A1a 1.2 %; HEMOGLOBIN A1b 0.8 %; HEMOGLOBIN Ao 85.2 %; HEMOGLOBIN F 1.2 %; HEMOGLOBIN LA1C 1.8 %; HEMOGLOBIN P3 3.7 %
[2016-09-05 18:00] VITALS: BP 167/74; PULSE 68; RESP 17; TEMP 96.8; O2SAT 99
[2016-09-05] MEDS: ATORVASTATIN 20 MG TAB PO SCH (21:38)
[2016-09-06 06:00] VITALS: BP 160/69; PULSE 65; RESP 16; TEMP 97.8
[2016-09-06] MEDS: LEVOTHYROXINE SODIUM 50 MCG TAB PO SCH (06:08)
[2016-09-06] MEDS: ASPIRIN EC 81 MG TABEC PO SCH (09:47)
[2016-09-06] MEDS: ATENOLOL 25 MG TAB PO SCH (09:47)
[2016-09-06] MEDS: CHOLECALCIFEROL (VIT D3) 1000 UNIT TAB PO SCH (09:48)
--- NOTE | 2016-09-06 13:29 | HHI.PYPN ---
Subjective Remarks Medical patient's daughter is an RN, for about 45 minutes all of that time spent counseling daughter advising her as to diagnosis treatment medications discharge planning and resources in the community. Daughter showing some marked resistance to considering becoming her mother's full guardian. Though she feels mother is at significant risk if she was sent home of deteriorating rapidly. Daughter does have information that would be very helpful to him however might be educating the situation out. Patient seen in the day room. Patient denies any of the issues related to daughter statements concerning spending significant amounts of money and various lottery type schemes. Selling her car, reverse mortgage in her house etc. Patient became more angry with me when I should also silly information given by the daughter. Though she does agree to have a neurologist evaporator helper says she appears did phone have some mild head injury illness somewhat recent past. Daughter is willing to be health care surrogate. It appears patient didn't do well on small dose of Haldol yesterday. Will offer Haldol elixir 0.5 mg twice a day, and also get neurology consult Review of Systems Except as stated in HPI: all other systems reviewed are Neg Objective Alert: Yes [place]: Person, Place, Date, Situation Mood: Anxious, Oppositional Affect: Labile, Other (increased range and intensity) Memory Intact: Comment (not formally tetsed in main ed setting) Hallucinations: Other (negative) Delusions: No Delusion Type: Paranoid (vaguely) Suicidal: Ideation (deneis any) Homicidal: Ideation (deneis any) Insight/Judgment Poor Labs Date/Time Procedure Status Source Growth 09/04/16 04:40 Urine Culture - Final Complete Urine Random Urine 50-100,000 CFU/ML MIXED ALFONSO... Vitals/IOs Vital Signs Date Time Temp Pulse Resp B/P Pulse Ox O2 Delivery O2 Flow Rate FiO2 09/06/16 06:00 97.8 65 16 160/69 09/05/16 18:00 99 09/04/16 07:08 Room Air Intake and Output 09/05/16 09/05/16 09/06/16 08:00 16:00 00:00 Intake Total 240 ml 600 ml 480 ml Balance 240 ml 600 ml 480 ml Assessment & Plan Problem List: (1) Late onset Alzheimer's disease without behavioral disturbance ICD Code: G30.1 Assessment & Plan Estimated LOS: days patient should continue showed irritability no insight into disease, diffusely confused. Patient's daughter who will be health care surrogate was given permission for low-dose Haldol and neurology referral Justification for Cont. Inpt. At this time patient will decompensate if placed in a lower level of care Discharge Planning To be determined Request HC Surrog/Guard Advoc?: Yes Dennis Major MD Sep 06, 2016 13:29
--- NOTE | 2016-09-06 16:23 | PD.CONS ---
Provisional Diagnosis Admission Date September 04, 2016 at 12:37 [place] I. 1. Dementia of the Alzheimer type with behavioral disturbance [place] II. Deferred [place] V. GAF is 30 presently History of Present Illness Service Psychiatry Consult Requested By Dr. Major Reason for Consult Second opinion for involuntary psychiatric hospitalization Primary Care Physician Non-Staff HPI From Dr. Major's H&P: Patient is an 89-year-old white female who comes here under an ex parte follow- up by her daughter and signed by Bullet Assembly Press Operator from [facility]. The document reviewed. Essentially stating that patient show deterioration in her behavior ability to care for herself during risky behaviors with people in the neighborhood. Continuing her driving. And also mentioning gambling addiction. Patient seen screened in the ED urine toxicology negative, however UA was positive patient will be treated for UTI. At the present time patient sitting quietly in the day room RN present throughout session patient is a calm cooperative is somewhat guarded in feisty white female appears younger than her stated age. Patient is oriented to person place she noises she is an [facility] with his [facility]. She knows that is 2016 and September 05. She no she lives in [place]. She shows some mild confusion as to what led to this hospitalization. It appears per the ex parte the patient fell some Time ago and she seems to be somewhat confused with that time line. She denies suicidality homicidality voices or visions. She denies any prior psychiatric contact hospitalization his psychotropic medication she denies any drug use. Though vaguely acknowledges some past alcohol use including an occasional glass of wine after dinner at this time. She appears quite adamant about wanting to live on her own driving her car and taking care of herself. 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 She states she had 3 children a daughter and 2 sons. The 2 sons are the daughter lives in [place] and appears to have done the ex parte. Patient does deny any physical or sexual abuse. Or any significant trauma. In any event at the present time patient showing some vague diffuse confusion irritability and perhaps confabulation. We need to get further information concerning this lady. At this time I feel she does not have capacity thus I will do first opinion petition supporting [place] act I will also do a health care surrogate and guardian advocate. We will have the nursing staff contact patient's daughter to arrange for a family meeting tomorrow morning. We'll also the hospitalist consult with us On my examination today: Patient seen and examined. Chart reviewed. Case discussed with nursing staff. On my examination today, the patient presents as extremely irritable. She speaks through gritted teeth. She tells me "this is an absolute waste! They' re making a fernando!" When I ask who is doing so, she replies, "the one who's one hand is handling the other." Affect is extremely dysphoric. She denies any suicidal or homicidal ideation but seems unreliable to contract for safety. She denies any audiovisual hallucinations. She is fairly paranoid. Psychiatric interview is somewhat limited by patient's irritability. Later, on the unit, the patient tries to escape through the exit door when I am returning to the unit. She then pursues me down the hallway and tries to get into the nursing station. Past psychiatric history: The patient is likely an unreliable historian but denies any history of inpatient or outpatient psychiatric treatment or psychiatric diagnosis. She denies any history of suicide attempts. Family history: The patient denies any family history of mental illness. Chemical dependency history: Patient reports only a glass of wine at dinner occasionally. She denies any other substance use. Social history: The patient reports that she lives alone. She is . She has a daughter who is a nurse and 2 other daughters who are . She is college educated. She previously worked for [employer]. Review of Systems ROS Limitations: Poor Historian Except as stated in HPI: all other systems reviewed are Neg Past Family Social History Coded Allergies: No Known Allergies (Unverified , 09/04/16) Past Medical History See electronic medical record Active Scripts Ciprofloxacin (Cipro)250 Mg [id number] Mg PO BID #6 TAB Ref 0 Prov:Anil Pereyra MD 09/04/16 Reported Medications Aspirin (Aspirin Low Strength)81 Mg Chew81 Mg PO 09/04/16 Rosuvastatin 10 Mg Tab10 Mg PO HS Ref 0 09/04/16 Atenolol 25 Mg Tab25 Mg PO DAILY #30 TAB 09/04/16 Levothyroxine (Synthroid)50 Mcg Tab50 Mcg PO DAILY #30 TAB Ref 0 09/04/16 Current Medications Medications (Trade) Dose Ordered Sig/Valarie Route Start Time Stop Time Status Last Admin (Tylenol) 650 mg Q4H PRN PO 09/04/16 12:45 (Milk Of Magnesia Liq) 30 ml DAILY PRN PO 09/04/16 12:45 (Mag-Al Plus Susp Liq) 30 ml Q6H PRN PO 09/04/16 12:45 (Catapres) 0.1 mg Q6H PRN PO 09/04/16 14:15 09/04/16 14:40 (Tenormin) 25 mg DAILY PO 09/05/16 09:00 09/06/16 09:47 (Synthroid) 50 mcg DAILY@06 PO 09/05/16 06:00 09/06/16 06:08 (Lipitor) 20 mg HS PO 09/04/16 21:00 09/05/16 21:38 (Ecotrin Ec) 81 mg DAILY PO 09/05/16 09:00 09/06/16 09:47 (Haldol Inj) 2 mg Q6H PRN IM 09/04/16 20:00 (Vitamin D3) 2,000 units DAILY PO 09/05/16 09:30 09/06/16 09:48 (Benadryl) 50 mg HS PRN PO 09/05/16 10:00 (Atarax) 50 mg Q6H PRN PO 09/05/16 10:00 (Ativan) 0.5 mg Q6H PRN PO 09/05/16 10:45 (Ativan Inj) 0.5 mg Q6H PRN IM 09/05/16 10:45 (Haldol Lactate Liq) 0.5 mg BID PO 09/06/16 21:00 Family History See above Social History See above Patient's Strengths (min. 2) In a monitored setting. Verbally fluent. Physical Exam Physical examination completed by hospitalist organizational development consultant. On my examination today, the patient presents in no acute physical distress. No abnormal motor movements noted. Laboratories and vital signs reviewed: Vital Signs Vital Signs Date Time Temp Pulse Resp B/P Pulse Ox O2 Delivery O2 Flow Rate FiO2 09/06/16 06:00 97.8 65 16 160/69 09/05/16 18:00 99 09/04/16 07:08 Room Air I/O 09/05/16 09/05/16 09/06/16 08:00 16:00 00:00 Intake Total 240 ml 600 ml 480 ml Balance 240 ml 600 ml 480 ml Lab Results Item Value Date Time White Blood Count 7.0 TH/MM3 09/04/16426 Hemoglobin 13.1 GM/DL 09/04/16426 Mean Platelet Volume 10.2 FL 09/04/16426 Platelet Count 174 TH/MM3 09/04/16426 Sodium Level 143 MEQ/L 09/05/16611 Potassium Level 3.8 MEQ/L 09/05/16611 Chloride Level 106 MEQ/L 09/05/16611 Carbon Dioxide Level 29.1 MEQ/L 09/05/16611 Blood Urea Nitrogen 20 MG/DL H 09/05/16611 Creatinine 0.94 MG/DL 09/05/16611 Hemoglobin A1c 5.8 % 09/05/16611 Aspartate Amino Transf (AST/SGOT) 21 U/L 09/04/16426 Alanine Aminotransferase (ALT/SGPT) 16 U/L 09/04/16426 Alkaline Phosphatase 113 U/L 09/04/16426 Thyroid Stimulating Hormone 3rd Gen 6.100 uIU/ML H 09/05/16611 Free Thyroxine 1.12 NG/DL 09/05/16611 Vitamin B12 Level 351 PG/ML 09/05/16611 25-Hydroxy Vitamin D Total 10.7 ng/ML L 09/05/16611 Toxicology negative. Urinalysis concerning for UTI although urine culture reveals only mixed ricardo. Mental Status Examination Patient is casually dressed. She is somewhat disheveled. She is awake and alert and oriented to person, place and date. Her registration is 3 out of 3 but her recall is 0 out of 3 at 3 minutes. She is able spell the word world forwards and backwards and name to items but struggles with repeating a phrase and proverb interpretation. No motor abnormalities noted. Speech is terse and angry. Language and fund of knowledge seem reduced. Mood is angry and affect is quite restricted, dysphoric and irritable. Thought process perseverative on discharge. Paranoia is present. No AVH. No SI or HI although the patient is unreliable to contract for safety at present. Insight and judgment are poor. Assessment & Plan Problem List: (1) Late onset Alzheimer's disease without behavioral disturbance ICD Code: G30.1 Assessment & Plan Given the circumstances of the patient's presentation here and her presentation on my examination today, I concur with Dr. Major that the patient meets criteria for involuntary psychiatric hospitalization under the [place] act. I have completed the second opinion paperwork. Further care as per Dr. Major. Thank you very much for this consultation. Signing off. Request HC Surrog/Guard Advoc?: Yes Cyril Richardson MD Sep 06, 2016 16:23
[2016-09-06 19:27] VITALS: BP 177/74; PULSE 71; RESP 16; TEMP 97.2; O2SAT 98
[2016-09-06] MEDS: ATORVASTATIN 20 MG TAB PO SCH (21:18)
[2016-09-06] MEDS: HALOPERIDOL LACTATE ORAL CONC 10 MG/5 ML CUP PO SCH (21:19)
[2016-09-06 22:53] LABS: BLOOD, URINE NEG (NEG); COMMENT (UR) CULTURE INDICATED; CULTURE IF INDICATED CULTURE INDICATED; GLUCOSE,URINE NEG (NEG); KETONE, URINE NEG (NEG); NITRITE,URINE NEG (NEG); SQUAMOUS EPITHELIAL CELL URINE 5 /hpf (0-5); URINE COLOR YELLOW (YELLW/STRAW)
[2016-09-07] MEDS: LEVOTHYROXINE SODIUM 50 MCG TAB PO SCH (05:30)
[2016-09-07 05:36] VITALS: BP 160/70; PULSE 69; RESP 18; TEMP 96.9; O2SAT 96
[2016-09-07] MEDS: ATENOLOL 25 MG TAB PO SCH (08:54)
[2016-09-07] MEDS: CHOLECALCIFEROL (VIT D3) 1000 UNIT TAB PO SCH (08:54)
[2016-09-07] MEDS: HALOPERIDOL LACTATE ORAL CONC 10 MG/5 ML CUP PO SCH ×2 (08:54→21:58)
[2016-09-07] MEDS: ASPIRIN EC 81 MG TABEC PO SCH (08:54)
--- NOTE | 2016-09-07 12:45 | HHI.PR ---
Subjective Remarks Follow-up on patient with dementia, hypertension and hypothyroidism. Patient seen and examined today. Patient doing well. She denies any complaints. No pain or discomfort. No chest pain, SOB or palpitations. She denies any dysuria or difficulty with urination. Objective Vitals Vital Signs Date Time Temp Pulse Resp B/P Pulse Ox O2 Delivery O2 Flow Rate FiO2 09/07/16 05:36 96.9 69 18 160/70 96 09/06/16 19:27 97.2 71 16 177/74 98 I/O 09/06/16 09/06/16 09/06/16 09/07/16 09/07/16 09/07/16 07:00 15:00 23:00 07:00 15:00 23:00 Intake Total 120 ml 0 ml 240 ml Balance 120 ml 0 ml 240 ml Intake Oral 120 ml 0 ml 240 ml # Voids 2 1 2 Result Diagram: 09/04/16 0427 09/05/16 0612 Objective Remarks GENERAL: This is a well-nourished, well-developed patient, in no apparent distress. Patient appears much younger than stated age. Sitting in community room eating lunch. SKIN: No rashes, ecchymoses or lesions. Cool and dry. HEENT: Atraumatic. Normocephalic. EOMI. MMM. CARDIOVASCULAR: Regular rate and rhythm without gallops, or rubs. Positive 4 / 6 systolic heart murmur RESPIRATORY: Clear to auscultation. Breath sounds equal bilaterally. No wheezes , rales, or rhonchi. GASTROINTESTINAL: Abdomen soft, non-tender, nondistended. No hepato-splenomegaly , or palpable masses. No guarding. MUSCULOSKELETAL: Extremities without clubbing, cyanosis, or edema. No joint tenderness, effusion, or edema noted. No calf tenderness. NEUROLOGICAL: Awake and alert. Able to move all extremities. Normal speech. Medications and IVs Current Medications Medications (Trade) Dose Ordered Sig/Valarie Route Start Time Stop Time Status Last Admin (Tylenol) 650 mg Q4H PRN PO 09/04/16 12:45 (Milk Of Magnesia Liq) 30 ml DAILY PRN PO 09/04/16 12:45 (Mag-Al Plus Susp Liq) 30 ml Q6H PRN PO 09/04/16 12:45 (Catapres) 0.1 mg Q6H PRN PO 09/04/16 14:15 09/04/16 14:40 (Tenormin) 25 mg DAILY PO 09/05/16 09:00 09/07/16 08:54 (Synthroid) 50 mcg DAILY@06 PO 09/05/16 06:00 09/07/16 05:30 (Lipitor) 20 mg HS PO 09/04/16 21:00 09/06/16 21:18 (Ecotrin Ec) 81 mg DAILY PO 09/05/16 09:00 09/07/16 08:54 (Haldol Inj) 2 mg Q6H PRN IM 09/04/16 20:00 09/06/16 18:16 (Vitamin D3) 2,000 units DAILY PO 09/05/16 09:30 09/07/16 08:54 (Benadryl) 50 mg HS PRN PO 09/05/16 10:00 (Atarax) 50 mg Q6H PRN PO 09/05/16 10:00 (Ativan) 0.5 mg Q6H PRN PO 09/05/16 10:45 (Ativan Inj) 0.5 mg Q6H PRN IM 09/05/16 10:45 (Haldol Lactate Liq) 0.5 mg BID PO 09/06/16 21:00 09/07/16 08:54 (Norvasc) 5 mg DAILY PO 09/08/16 09:00 A/P Assessment and Plan 89-year-old female with past medical history hypertension, hyperlipidemia, hypothyroidism, and osteoarthritis. [facility] consulted for medical management. ExParte Dementia - Management per psychiatric team Hypertension/CAD - uncontrolled. Begin Norvasc 5mg daily. - Continue with atenolol 25 mg daily - ASA daily - Clonidine when necessary for systolic blood pressure greater than 180. - Monitor BP and adjust treatment as indicated. UTI - Suggested by UA. Patient was given a dose of Cipro. Will try to avoid Cipro due to resistance. - UCX shows 50-100,000 mixed ricardo, likely contaminant - Discontinue Bactrim - patient is asymptomatic. - Repeat UA shows large leukocytes and 23 WBC. UCX pending. Will follow up on results. Hypothyroidism - TSH 3.930 and 6.100 - Free T4 1.12 - Continue on levothyroxine 50 g daily - Recommend repeat labs in 6-8 weeks with PCP KRISTI - Mild - Resolved - avoid nephrotoxic agents - encourage po intake Dyslipidemia - Continue on Lipitor 20 mg daily Vitamin D deficiency - Vit D level 10.7 - Continue by mouth supplementation - Recommend follow-up with repeat vitamin D levels as an outpatient with PCP Discussed with patient and Gabriella Maria Sep 07, 2016 12:45
--- NOTE | 2016-09-07 13:40 | HHI.PYPN ---
Subjective Remarks Pt seen and discussed with staff. She has been exit seeking and yesterday required IM haldol for agitation. Today she has been calm and cooperative. She remains paranoid but has been compliant with medications. No SI/HI Objective Alert: Yes [place]: Person, Place, Date Mood: Calm, Other Affect: Labile, Restricted Memory Intact: Comment (impaired) Hallucinations: Other (none) Delusions: Yes Delusion Type: Paranoid (vaguely) Suicidal: Ideation (deneis any) Homicidal: Ideation (deneis any) Insight/Judgment poor Labs Date/Time Procedure Status Source Growth 09/06/16 08:38 Urine Culture Received Urine Clean Catch Pending 09/04/16 04:40 Urine Culture - Final Complete Urine Random Urine 50-100,000 CFU/ML MIXED ALFONSO... Vitals/IOs Vital Signs Date Time Temp Pulse Resp B/P Pulse Ox O2 Delivery O2 Flow Rate FiO2 09/07/16 05:36 96.9 69 18 160/70 96 09/04/16 07:08 Room Air Intake and Output 09/06/16 09/06/16 09/07/16 08:00 16:00 00:00 Intake Total 120 ml Balance 120 ml Assessment & Plan Problem List: (1) Late onset Alzheimer's disease without behavioral disturbance ICD Code: G30.1 Assessment & Plan Continue current tx plan. Estimated LOS: days Justification for Cont. Inpt. impairments in self care Request HC Surrog/Guard Advoc?: Yes Eri Quiles MD Sep 07, 2016 13:40
[2016-09-07 18:00] VITALS: BP 176/70; PULSE 60; RESP 17; TEMP 96.2; O2SAT 99
[2016-09-07] MEDS: cloNIDine HCL 0.1 MG TAB PO PRN (18:23)
[2016-09-07] MEDS: ATORVASTATIN 20 MG TAB PO SCH (21:58)
[2016-09-08] MEDS: LEVOTHYROXINE SODIUM 50 MCG TAB PO SCH (06:14)
[2016-09-08 06:29] VITALS: BP 116/70; PULSE 67; RESP 16; TEMP 97.9; O2SAT 98
[2016-09-08] MEDS ORDERED: amLODIPine BESYLATE 5 MG TAB PO SCH (09:00)
[2016-09-08] MEDS: ASPIRIN EC 81 MG TABEC PO SCH (09:09)
[2016-09-08] MEDS: CHOLECALCIFEROL (VIT D3) 1000 UNIT TAB PO SCH (09:09)
[2016-09-08] MEDS: HALOPERIDOL LACTATE ORAL CONC 10 MG/5 ML CUP PO SCH ×2 (09:09→21:34)
[2016-09-08] MEDS: ATENOLOL 25 MG TAB PO SCH (09:09)
--- NOTE | 2016-09-08 11:00 | HHI.PYPN ---
Subjective Remarks Pt seen and discussed with staff. Pt reports that she is irritable and wants to leave and get her life back. Insight is poor. Staff report that pt is oriented but confused and requires redirection and close supervision. No SI/hI No agitation. She reports that sleep has improved Objective Alert: Yes [place]: Person, Place, Date Mood: Calm, Other (irritable) Affect: Restricted Memory Intact: Comment (impaired) Hallucinations: Other (none) Delusions: Yes Delusion Type: Paranoid (vaguely) Suicidal: Ideation (deneis any) Homicidal: Ideation (deneis any) Insight/Judgment poor Labs Date/Time Procedure Status Source Growth 09/06/16 08:38 Urine Culture - Preliminary Resulted Urine Clean Catch RESULTS PENDING 09/04/16 04:40 Urine Culture - Final Complete Urine Random Urine 50-100,000 CFU/ML MIXED ALFONSO... Vitals/IOs Vital Signs Date Time Temp Pulse Resp B/P Pulse Ox O2 Delivery O2 Flow Rate FiO2 09/08/16 06:29 97.9 67 16 116/70 98 09/04/16 07:08 Room Air Intake and Output 09/07/16 09/07/16 09/08/16 08:00 16:00 00:00 Intake Total 240 ml 240 ml 480 ml Balance 240 ml 240 ml 480 ml Assessment & Plan Problem List: (1) Late onset Alzheimer's disease without behavioral disturbance ICD Code: G30.1 Assessment & Plan Continue current tx plan. Estimated LOS: days Justification for Cont. Inpt. risk of decompensation Request HC Surrog/Guard Advoc?: Yes Eri Quiles MD Sep 08, 2016 11:00
--- NOTE | 2016-09-08 13:26 | HHI.PR ---
Addendum to Inpatient Note Additional Information Urine culture showing mixed gram positive ricardo, likely contaminant. Patient is asymptomatic. Chart reviewed. Blood pressure controlled. Patient appears medically stable. Will sign off for now. Please reconsult if needed. Gabriella Busby Sep 08, 2016 13:25
--- NOTE | 2016-09-08 17:47 | MB ---
cc: NIDIA BENITES MD DATE OF CONSULTATION: 09/08/2016. REASON FOR CONSULTATION: Evaluation for dementia. HISTORY OF PRESENT ILLNESS: Ms. Schultz is an 89-year-old female with past medical history of dementia who reported to the [facility] by her daughter due to the concern of being noncompliant with medication, malnourishment, not taking care of herself and not allowing her daughter to enter home and giving money away to [employer]. This medical history is obtained from the medical records as I was not able to see the patient because when I stopped by the psychiatry unit everybody was concerned about a critical patient and [facility] was called and they were not able to assist me and bring the patient from the lounge to the exam room. REVIEW OF SYSTEMS: A twelve-point review of systems was negative except for what is stated in the history of present illness, and this is by review of medical records. PAST MEDICAL HISTORY: On review of medical records: 1. Hypothyroidism. 2. Hypertension. 3. Osteoarthritis. 4. Hyperlipidemia. 5. Possible dementia. 6. Chronic heart murmur. PAST SURGICAL HISTORY: Thyroid surgery. MEDICATIONS: 1. Aspirin. 2. Rosuvastatin. 3. Atenolol. 4. Synthroid. FAMILY HISTORY: Noncontributory. SOCIAL HISTORY: Lives at home alone but she was brought to the hospital due to an ex parte. She is denying tobacco, alcohol or illicit drug use. PHYSICAL EXAMINATION: This was not done due to the situation in the psychiatry unit. ASSESSMENT AND PLAN: I was not able to assess and examine the patient because of the situation that happened in the psychiatric unit. I asked the nurse to re-consult neurology when needed for further evaluation of the patient's dementia. Nidia Benites MD [facility]/JCKanu /5:29 PM /5:42 PM MTDConnie
[2016-09-08 18:55] VITALS: BP 134/79; PULSE 56; RESP 16; TEMP 97.6
[2016-09-08] MEDS: ATORVASTATIN 20 MG TAB PO SCH (21:31)
[2016-09-09 05:56] VITALS: BP 144/59; PULSE 71; RESP 18; TEMP 97.8; O2SAT 95
[2016-09-09] MEDS: LEVOTHYROXINE SODIUM 50 MCG TAB PO SCH (06:28)
[2016-09-09] MEDS: amLODIPine BESYLATE 5 MG TAB PO SCH (09:00)
[2016-09-09] MEDS: ASPIRIN EC 81 MG TABEC PO SCH (09:41)
[2016-09-09] MEDS: ATENOLOL 25 MG TAB PO SCH (09:41)
[2016-09-09] MEDS: CHOLECALCIFEROL (VIT D3) 1000 UNIT TAB PO SCH (09:41)
[2016-09-09] MEDS: HALOPERIDOL LACTATE ORAL CONC 10 MG/5 ML CUP PO SCH ×2 (09:42→18:00)
--- NOTE | 2016-09-09 15:17 | HHI.PYPN ---
Subjective Remarks Patient discussed with treatment team, patient seen on unit. Patient somewhat, with me though showing no insight into her behavior demanding to be discharged. Later in the afternoon at the time of this dictation patient becoming more angry irritable demanding exits seeking in physically more intrusive. Will increase Haldol elixir to 1 mg noon 1 mg 6 PM to address the sundowning Review of Systems Except as stated in HPI: all other systems reviewed are Neg Objective Alert: Yes [place]: Person, Place, Date Mood: Calm, Other (irritable) Affect: Restricted Memory Intact: Comment (impaired) Hallucinations: Other (none) Delusions: Yes Delusion Type: Paranoid (vaguely) Suicidal: Ideation (deneis any) Homicidal: Ideation (deneis any) Insight/Judgment Very poor Labs Date/Time Procedure Status Source Growth 09/06/16 08:38 Urine Culture - Final Complete Urine Clean Catch 10-50,000 CFU/ML MIXED GRAM POSITIVE ... Vitals/IOs Vital Signs Date Time Temp Pulse Resp B/P Pulse Ox O2 Delivery O2 Flow Rate FiO2 09/09/16 05:56 97.8 71 18 144/59 95 Intake and Output 09/08/16 09/08/16 09/09/16 08:00 16:00 00:00 Intake Total 120 ml 600 ml 480 ml Balance 120 ml 600 ml 480 ml Assessment & Plan Problem List: (1) Late onset Alzheimer's disease without behavioral disturbance ICD Code: G30.1 Assessment & Plan Estimated LOS: days patient continues demented confused with increased sundowning behavior see medication adjustment above Justification for Cont. Inpt. At this time patient will decompensate the placed in a lower level of care Discharge Planning To be determined Request HC Surrog/Guard Advoc?: Yes Dennis Major MD Sep 09, 2016 15:17
--- NOTE | 2016-09-09 16:27 | PD.TTN ---
Present for Treatment Team Treatment Team Staff: Provider (Dr. Knowles), Nurse (Darvin), Psych Therapist ( VENKATA Polk), Other (Sabine, recreation therapy) Patient Problems 1. Discharge planning 2. Medication compliance 3. Knowledge deficit 4. Lack of coping skills Progress Toward Goals Provider Input: Dr. Knowles reported the patient is showing no insight into her behavior and demanding to be discharged. Per Dr. knowles, he will increase Haldol elixir to 1 mg noon 1 mg 6 PM in an effort to address the sundowning Psych Therapist Input: Counselor reported this patient has a strong desire to be discharged home and resume her independant lifestyle. Patient is highly resistive to placement and reports her roommate "helps her out." Counselor will encourage medication compliance and participation in therapeutic groups and activities. Documentation Scribe: VENKATA Polk Date Resolved: Sep 09, 2016 Lorna Basurto Sep 09, 2016 16:27
[2016-09-09 18:00] VITALS: BP 123/65; PULSE 72; RESP 16; TEMP 96.9; O2SAT 96
[2016-09-09] MEDS: ATORVASTATIN 20 MG TAB PO SCH (21:14)
[2016-09-10] MEDS: LEVOTHYROXINE SODIUM 50 MCG TAB PO SCH (05:38)
[2016-09-10 05:43] VITALS: BP 120/58; PULSE 82; RESP 17; TEMP 97.9; O2SAT 98
[2016-09-10] MEDS: CHOLECALCIFEROL (VIT D3) 1000 UNIT TAB PO SCH (09:21)
[2016-09-10] MEDS: ATENOLOL 25 MG TAB PO SCH (09:21)
[2016-09-10] MEDS: ASPIRIN EC 81 MG TABEC PO SCH (09:22)
[2016-09-10] MEDS: amLODIPine BESYLATE 5 MG TAB PO SCH (09:22)
[2016-09-10] MEDS: HALOPERIDOL LACTATE ORAL CONC 10 MG/5 ML CUP PO SCH ×2 (12:19→17:31)
--- NOTE | 2016-09-10 13:18 | HHI.PYPN ---
Subjective Remarks Patient seen in day room with nurse Darvin, patient continues confused and demented, while no behavioral problems, shows no insight. Patient to be discharged immediately. She is compliant with her medications, there is some decrease in the intensity and irritability noted in previous days Review of Systems Except as stated in HPI: all other systems reviewed are Neg Objective Alert: Yes [place]: Person, Place, Date Mood: Calm, Other (irritable) Affect: Restricted Memory Intact: Comment (impaired) Hallucinations: Other (none) Delusions: Yes Delusion Type: Paranoid (vaguely) Suicidal: Ideation (deneis any) Homicidal: Ideation (deneis any) Insight/Judgment Very poor Labs Date/Time Procedure Status Source Growth 09/06/16 08:38 Urine Culture - Final Complete Urine Clean Catch 10-50,000 CFU/ML MIXED GRAM POSITIVE ... Vitals/IOs Vital Signs Date Time Temp Pulse Resp B/P Pulse Ox O2 Delivery O2 Flow Rate FiO2 09/10/16 05:43 97.9 82 17 120/58 98 Intake and Output 09/09/16 09/09/16 09/10/16 08:00 16:00 00:00 Intake Total 0 ml 1080 ml 960 ml Balance 0 ml 1080 ml 960 ml Assessment & Plan Problem List: (1) Late onset Alzheimer's disease without behavioral disturbance ICD Code: G30.1 Assessment & Plan Estimated LOS: days patient remains confused demented, compliant medications. For now continue treatment Justification for Cont. Inpt. At this time patient will decompensate if placed in a lower level of care Discharge Planning To be determined Request HC Surrog/Guard Advoc?: Yes Dennis Major MD Sep 10, 2016 13:18
[2016-09-10 17:58] VITALS: BP 163/71; PULSE 70; RESP 17; TEMP 98.5; O2SAT 96
[2016-09-10] MEDS: ATORVASTATIN 20 MG TAB PO SCH (20:43)
[2016-09-11 05:25] VITALS: BP 165/69; PULSE 67; RESP 18; TEMP 96.6; O2SAT 95
[2016-09-11] MEDS: LEVOTHYROXINE SODIUM 50 MCG TAB PO SCH (05:41)
[2016-09-11] MEDS: CHOLECALCIFEROL (VIT D3) 1000 UNIT TAB PO SCH (09:13)
[2016-09-11] MEDS: ATENOLOL 25 MG TAB PO SCH (09:13)
[2016-09-11] MEDS: ASPIRIN EC 81 MG TABEC PO SCH (09:13)
[2016-09-11] MEDS: amLODIPine BESYLATE 5 MG TAB PO SCH (09:14)
--- NOTE | 2016-09-11 09:29 | HHI.PYPN ---
Subjective Remarks Patient seen in day room with flow state. Patient continue superficially calm cooperative though diffusely confused. There is a somewhat underlying vigilance irritability I did share with her that she is scheduled for [employer] tomorrow.. I also talked with patient's daughter Katt Delgadillo at . I explained the procedure to her. She will be appropriate at court also.. Patient compliant medications Review of Systems Except as stated in HPI: all other systems reviewed are Neg Objective Alert: Yes [place]: Person, Place, Date Mood: Calm, Other (irritable) Affect: Restricted Memory Intact: Comment (impaired) Hallucinations: Other (none) Delusions: Yes Delusion Type: Paranoid (vaguely) Suicidal: Ideation (deneis any) Homicidal: Ideation (deneis any) Insight/Judgment Very poor Vitals/IOs Vital Signs Date Time Temp Pulse Resp B/P Pulse Ox O2 Delivery O2 Flow Rate FiO2 09/11/16 05:25 96.6 67 18 165/69 95 Assessment & Plan Problem List: (1) Late onset Alzheimer's disease without behavioral disturbance ICD Code: G30.1 Assessment & Plan Estimated LOS: days patient continues confused demented. Scheduled for [employer] tomorrow, compliant medications Justification for Cont. Inpt. At this time patient will decompensate the placed at a lower level of care Discharge Planning To be determined Request HC Surrog/Guard Advoc?: Yes Dennis Major MD Sep 11, 2016 09:29
[2016-09-11] MEDS: HALOPERIDOL LACTATE ORAL CONC 10 MG/5 ML CUP PO SCH ×2 (12:00→17:52)
[2016-09-11 19:41] VITALS: BP 177/77; PULSE 69; RESP 18; TEMP 98.6
[2016-09-11] MEDS: ATORVASTATIN 20 MG TAB PO SCH (20:26)
[2016-09-12 05:18] VITALS: BP 128/84; PULSE 80; RESP 16; TEMP 99; O2SAT 97
[2016-09-12] MEDS: LEVOTHYROXINE SODIUM 50 MCG TAB PO SCH (05:39)
[2016-09-12] MEDS: amLODIPine BESYLATE 5 MG TAB PO SCH (09:00)
[2016-09-12] MEDS: ASPIRIN EC 81 MG TABEC PO SCH (09:36)
[2016-09-12] MEDS: CHOLECALCIFEROL (VIT D3) 1000 UNIT TAB PO SCH (09:37)
[2016-09-12] MEDS: ATENOLOL 25 MG TAB PO SCH (09:37)
--- NOTE | 2016-09-12 11:05 | HHI.PYPN ---
Subjective Remarks Patient seen in [place] with daughter, patient's case continued by Bin Worker Channing for 4 weeks daughter to be health care surrogate. While patient overall did well court her per short-term memory and irritability were such that felt she was unable to be discharged. We'll continue to work with patient related to her medications and recommendations for further care and assistance in the community. Patient showing no insight into her issues, showing some irritability focus more towards her daughter and me Review of Systems Except as stated in HPI: all other systems reviewed are Neg Objective Alert: Yes [place]: Person, Place, Date Mood: Calm, Other (irritable) Affect: Restricted Memory Intact: Comment (impaired) Hallucinations: Other (none) Delusions: Yes Delusion Type: Paranoid (vaguely) Suicidal: Ideation (deneis any) Homicidal: Ideation (deneis any) Insight/Judgment Poor Vitals/IOs Vital Signs Date Time Temp Pulse Resp B/P Pulse Ox O2 Delivery O2 Flow Rate FiO2 09/12/16 05:18 99.0 80 16 97 Intake and Output 09/11/16 09/11/16 09/12/16 08:00 16:00 00:00 Intake Total 360 ml 120 ml 480 ml Balance 360 ml 120 ml 480 ml Assessment & Plan Problem List: (1) Late onset Alzheimer's disease without behavioral disturbance ICD Code: G30.1 Assessment & Plan Estimated LOS: days patient continues confused and demented, with little insight into her disease. Patient compliant medications for now continue treatment Justification for Cont. Inpt. At this time patient will decompensate placed in a lower level of care Discharge Planning To be determined Request HC Surrog/Guard Advoc?: Yes Dennis Major MD Sep 12, 2016 11:05
[2016-09-12] MEDS: HALOPERIDOL LACTATE ORAL CONC 10 MG/5 ML CUP PO SCH ×2 (11:43→17:26)
--- NOTE | 2016-09-12 14:47 | PD.TTN ---
Present for Treatment Team Treatment Team Staff: Provider (Dr. Major), Psych Therapist (Lorna Basurto), Other Clinician (rec. pamella Giron) Patient Problems 1. Discharge planning 2. Medication compliance 3. Knowledge deficit 4. Lack of coping skills Progress Toward Goals Provider Input: Dr. Major reported the patient will have her [place] hearing tomorrow, and remains compliant with medications and treatment. Psych Therapist Input: Counselor reported the patient remains calm, cooperative, and pleasant. Patient appears to lack insight into her mental illness and has poor short-term memory. Patient appears to be coping with this hospitalization appropriately. Discharge will be planned by Dr. Niño, this counselor, patient, and patient's daughter/POA/healthcare surrogate. Patient's daughter reported to this counselor that she would like the patient placed in a locked GROUP HOME for the safety of patient and the community due to patient's refusal to give up driving. Other Clinican Input: rec. pamella Giron reported the patient did not attend group today. Documentation Scribe: VENKATA Polk Date Resolved: Sep 11, 2016 Lorna Basurto Sep 12, 2016 14:47
[2016-09-12 18:36] VITALS: BP 120/81; PULSE 69; RESP 17; TEMP 97.9; O2SAT 97
[2016-09-12] MEDS: ATORVASTATIN 20 MG TAB PO SCH (20:35)
[2016-09-12] MEDS: hydrOXYzine HCL 50 MG TAB PO PRN (20:35)
[2016-09-13 05:00] VITALS: PULSE 72; RESP 17; TEMP 96.9; O2SAT 98
[2016-09-13] MEDS: cloNIDine HCL 0.1 MG TAB PO PRN (05:51)
[2016-09-13] MEDS: LEVOTHYROXINE SODIUM 50 MCG TAB PO SCH (05:51)
[2016-09-13] MEDS: LORazepam 0.5 MG TAB PO PRN (05:52)
[2016-09-13 09:35] VITALS: BP 110/55
[2016-09-13] MEDS: ATENOLOL 25 MG TAB PO SCH (09:36)
[2016-09-13] MEDS: amLODIPine BESYLATE 5 MG TAB PO SCH (09:36)
[2016-09-13] MEDS: CHOLECALCIFEROL (VIT D3) 1000 UNIT TAB PO SCH (09:38)
[2016-09-13] MEDS: ASPIRIN EC 81 MG TABEC PO SCH (09:38)
--- NOTE | 2016-09-13 11:16 | HHI.PYPN ---
Subjective Remarks Patient seen in her room with nurse Juan Carlos, chart review, patient napping in her room. Though arousable to pleasant with me. Patient showed some mild irritability attempted to discuss the behaviors in [place] yesterday. Now continue treatment Review of Systems Except as stated in HPI: all other systems reviewed are Neg Objective Alert: Yes [place]: Person, Place, Date Mood: Calm, Other (irritable) Affect: Restricted Memory Intact: Comment (impaired) Hallucinations: Other (none) Delusions: Yes Delusion Type: Paranoid (vaguely) Suicidal: Ideation (deneis any) Homicidal: Ideation (deneis any) Insight/Judgment Very poor Vitals/IOs Vital Signs Date Time Temp Pulse Resp B/P Pulse Ox O2 Delivery O2 Flow Rate FiO2 09/13/16 09:35 110/55 09/13/16 05:00 96.9 72 17 98 Intake and Output 09/12/16 09/12/16 09/12/16 07:59 15:59 23:59 Intake Total 480 ml 3120 ml Balance 480 ml 3120 ml Assessment & Plan Problem List: (1) Late onset Alzheimer's disease without behavioral disturbance ICD Code: G30.1 Assessment & Plan Estimated LOS: days patient continues committed confused, also with little insight into her issues, showed some irritability related to discussing her behaviors in [place] yesterday Justification for Cont. Inpt. At this time patient will decompensate then placed in a lower level of care Discharge Planning To be determined Request HC Surrog/Guard Advoc?: Yes Dennis Major MD Sep 13, 2016 11:16
[2016-09-13] MEDS: HALOPERIDOL LACTATE ORAL CONC 10 MG/5 ML CUP PO SCH ×2 (12:22→17:30)
[2016-09-13 18:00] VITALS: BP 86/50; PULSE 61; RESP 16; TEMP 95.8; O2SAT 98
[2016-09-13] MEDS: hydrOXYzine HCL 50 MG TAB PO PRN (20:32)
[2016-09-13] MEDS: ATORVASTATIN 20 MG TAB PO SCH (20:32)
[2016-09-14] MEDS: LEVOTHYROXINE SODIUM 50 MCG TAB PO SCH (06:04)
[2016-09-14 06:05] VITALS: BP 114/56; PULSE 69; RESP 16; TEMP 97.7; O2SAT 97
[2016-09-14] MEDS: amLODIPine BESYLATE 5 MG TAB PO SCH (10:02)
[2016-09-14] MEDS: ASPIRIN EC 81 MG TABEC PO SCH (10:02)
[2016-09-14] MEDS: ATENOLOL 25 MG TAB PO SCH (10:02)
[2016-09-14] MEDS: CHOLECALCIFEROL (VIT D3) 1000 UNIT TAB PO SCH (10:03)
[2016-09-14] MEDS: HALOPERIDOL LACTATE ORAL CONC 10 MG/5 ML CUP PO SCH ×2 (12:00→17:47)
--- NOTE | 2016-09-14 13:14 | HHI.PYPN ---
Subjective Remarks Patient was seen and case discussed with nursing. Patient is alert and oriented 2. Describes variable sleep. Patient is guarded and irritable throughout the interview. Focused on discharge. Poor insight into her admission and mental health. Denies auditory visual hallucinations. Compliant with medications Objective Alert: Yes [place]: Person, Place, Date Mood: Calm, Other (irritable) Affect: Restricted, Blunted Memory Intact: Comment (impaired) Hallucinations: Other (none) Delusions: Yes Delusion Type: Paranoid (vaguely) Suicidal: Ideation (deneis any) Homicidal: Ideation (deneis any) Insight/Judgment Poor Vitals/IOs Vital Signs Date Time Temp Pulse Resp B/P Pulse Ox O2 Delivery O2 Flow Rate FiO2 09/14/16 06:05 97.7 69 16 114/56 97 Intake and Output 09/13/16 09/13/16 09/14/16 08:00 16:00 00:00 Intake Total 0 ml 0 ml 600 ml Balance 0 ml 0 ml 600 ml Assessment & Plan Problem List: (1) Late onset Alzheimer's disease without behavioral disturbance ICD Code: G30.1 Assessment & Plan Continue current treatment plan Justification for Cont. Inpt. Patient will decompensate in a less restrictive setting Request HC Surrog/Guard Advoc?: Yes Naveed Farah DO Sep 14, 2016 13:14
[2016-09-14 18:00] VITALS: BP 117/56; PULSE 67; RESP 16; TEMP 98.8; O2SAT 96
[2016-09-14] MEDS: ATORVASTATIN 20 MG TAB PO SCH (22:06)
[2016-09-14] MEDS: hydrOXYzine HCL 50 MG TAB PO PRN (22:06)
[2016-09-15] MEDS: LEVOTHYROXINE SODIUM 50 MCG TAB PO SCH (06:05)
[2016-09-15 06:29] VITALS: BP 142/65; PULSE 64; RESP 16; TEMP 97.5; O2SAT 96
[2016-09-15] MEDS: amLODIPine BESYLATE 5 MG TAB PO SCH (10:08)
[2016-09-15] MEDS: ATENOLOL 25 MG TAB PO SCH (10:08)
[2016-09-15] MEDS: CHOLECALCIFEROL (VIT D3) 1000 UNIT TAB PO SCH (10:08)
[2016-09-15] MEDS: ASPIRIN EC 81 MG TABEC PO SCH (10:08)
[2016-09-15] MEDS: HALOPERIDOL LACTATE ORAL CONC 10 MG/5 ML CUP PO SCH ×2 (11:25→17:28)
--- NOTE | 2016-09-15 13:22 | HHI.PYPN ---
Subjective Remarks Patient was seen and case discussed with nursing. Patient is alert and oriented 3. Pleasant and cooperative with exam. And cheerful mood today singing a song. Compliant with her medications. Eating well on the unit. Nursing has noted she is forgetful throughout the day Objective Alert: Yes [place]: Person, Place, Date Mood: Calm Affect: Restricted Memory Intact: Comment (impaired) Hallucinations: Other (none) Delusions: Yes Delusion Type: Paranoid (vaguely) Suicidal: Ideation (deneis any) Homicidal: Ideation (deneis any) Insight/Judgment Poor Vitals/IOs Vital Signs Date Time Temp Pulse Resp B/P Pulse Ox O2 Delivery O2 Flow Rate FiO2 09/15/16 06:29 97.5 64 16 142/65 96 Intake and Output 09/14/16 09/14/16 09/15/16 08:00 16:00 00:00 Intake Total 0 ml 120 ml 360 ml Balance 0 ml 120 ml 360 ml Assessment & Plan Problem List: (1) Late onset Alzheimer's disease without behavioral disturbance ICD Code: G30.1 Assessment & Plan Continue current treatment plan Justification for Cont. Inpt. Patient will decompensate in a less restrictive setting Request HC Surrog/Guard Advoc?: Yes Naveed Farah DO Sep 15, 2016 13:22
[2016-09-15 20:00] VITALS: BP 140/60; PULSE 70; RESP 16; TEMP 98
[2016-09-15] MEDS: ATORVASTATIN 20 MG TAB PO SCH (20:50)
[2016-09-16 05:50] VITALS: BP 102/54; PULSE 67; RESP 16; TEMP 98; O2SAT 94
[2016-09-16] MEDS: LEVOTHYROXINE SODIUM 50 MCG TAB PO SCH (06:19)
[2016-09-16] MEDS: CHOLECALCIFEROL (VIT D3) 1000 UNIT TAB PO SCH (08:52)
[2016-09-16] MEDS: ASPIRIN EC 81 MG TABEC PO SCH (08:53)
[2016-09-16] MEDS: ATENOLOL 25 MG TAB PO SCH (09:00)
[2016-09-16] MEDS: amLODIPine BESYLATE 5 MG TAB PO SCH (09:00)
--- NOTE | 2016-09-16 11:38 | PD.TTN ---
Present for Treatment Team Treatment Team Staff: Provider (Dr. Major), Psych Therapist (Lorna Basurto), Other Clinician (rec. Sabine therapy) Patient Problems 1. Discharge planning 2. Medication compliance 3. Knowledge deficit 4. Lack of coping skills Progress Toward Goals Provider Input: Dr. Major reported the patient has been no significant behavioral issue on the unit. Patient's short-term memory remains impaired and she is discharge focused. Psych Therapist Input: Counselor reported the patient remains medication compliant, oriented to person and situation at least, and calm and pleasant. Patient remains focused on discharge and continues to lack insight into her inability to drive. Patient appears to be coping appropriately. Other Clinican Input: rec. Sabine therapy, reported the patient attends select activities and activelty participates when she is present in group. Documentation Scribe: Lorna Basurto Date Resolved: Sep 16, 2016 Lorna Basurto [facility] Sep 16, 2016 11:38
[2016-09-16] MEDS: HALOPERIDOL LACTATE ORAL CONC 10 MG/5 ML CUP PO SCH ×2 (13:05→18:05)
--- NOTE | 2016-09-16 13:54 | HHI.PYPN ---
Subjective Remarks Patient seen in day room with nurse Sumit, chart reviewed, patient compliant medications. Patient remains pleasant though diffusely confused. No significant insight into her issues or problems. We continue to work on placement issues Review of Systems Except as stated in HPI: all other systems reviewed are Neg Objective Alert: Yes [place]: Person, Place, Date Mood: Calm Affect: Restricted Memory Intact: Comment (impaired) Hallucinations: Other (none) Delusions: Yes Delusion Type: Paranoid (vaguely) Suicidal: Ideation (deneis any) Homicidal: Ideation (deneis any) Insight/Judgment Very poor Vitals/IOs Vital Signs Date Time Temp Pulse Resp B/P Pulse Ox O2 Delivery O2 Flow Rate FiO2 09/16/16 05:50 98.0 67 16 102/54 94 Intake and Output 09/15/16 09/15/16 09/15/16 07:59 15:59 23:59 Intake Total 2160 ml 0 ml Balance 2160 ml 0 ml Assessment & Plan Problem List: (1) Late onset Alzheimer's disease without behavioral disturbance ICD Code: G30.1 Assessment & Plan Estimated LOS: days patient continues confused mental poor short-term memory. Compliant medications. For now continue treatment Justification for Cont. Inpt. At this time patient will decompensate if placed in a lower level of care Discharge Planning To be determined Request HC Surrog/Guard Advoc?: Yes Dennis Major MD Sep 16, 2016 13:54
[2016-09-16 18:05] VITALS: BP 143/62; PULSE 68; RESP 17; TEMP 97.6; O2SAT 96
[2016-09-16] MEDS: ATORVASTATIN 20 MG TAB PO SCH (21:00)
[2016-09-17] MEDS: LEVOTHYROXINE SODIUM 50 MCG TAB PO SCH (06:05)
[2016-09-17 06:09] VITALS: BP 130/67; PULSE 79; RESP 16; TEMP 97.8; O2SAT 96
[2016-09-17] MEDS: ATENOLOL 25 MG TAB PO SCH (08:34)
[2016-09-17] MEDS: ASPIRIN EC 81 MG TABEC PO SCH (08:34)
[2016-09-17] MEDS: CHOLECALCIFEROL (VIT D3) 1000 UNIT TAB PO SCH (08:34)
[2016-09-17] MEDS: amLODIPine BESYLATE 5 MG TAB PO SCH (08:34)
[2016-09-17] MEDS: HALOPERIDOL LACTATE ORAL CONC 10 MG/5 ML CUP PO SCH ×2 (12:26→17:51)
--- NOTE | 2016-09-17 14:30 | HHI.PYPN ---
Subjective Remarks Patient seen in dayroom of floor staff, patient continues calm pleasant with me at times seems fairly well-organized at times her confusion short-term memory issues do present. She is otherwise no behavioral problem Review of Systems Except as stated in HPI: all other systems reviewed are Neg Objective Alert: Yes [place]: Person, Place, Date Mood: Calm Affect: Restricted Memory Intact: Comment (impaired) Hallucinations: Other (none) Delusions: Yes Delusion Type: Paranoid (vaguely) Suicidal: Ideation (deneis any) Homicidal: Ideation (deneis any) Insight/Judgment Very poor Vitals/IOs Vital Signs Date Time Temp Pulse Resp B/P Pulse Ox O2 Delivery O2 Flow Rate FiO2 09/17/16 06:09 97.8 79 16 130/67 96 Intake and Output 09/16/16 09/16/16 09/16/16 07:59 15:59 23:59 Intake Total 120 ml 840 ml Balance 120 ml 840 ml Assessment & Plan Problem List: (1) Late onset Alzheimer's disease without behavioral disturbance ICD Code: G30.1 Assessment & Plan Estimated LOS: days patient continues confused and demented, though no behavior problems. Compliant medications Justification for Cont. Inpt. At this time patient will decompensate if placed in a lower level of care Discharge Planning To be determined Request HC Surrog/Guard Advoc?: Yes Dennis Major MD Sep 17, 2016 14:30
[2016-09-17 17:29] VITALS: BP 150/85; PULSE 77; RESP 17; TEMP 98.1; O2SAT 96
[2016-09-17] MEDS: LORazepam 0.5 MG TAB PO PRN (21:00)
[2016-09-17] MEDS: ATORVASTATIN 20 MG TAB PO SCH (21:00)
[2016-09-18 05:14] VITALS: BP 148/61; PULSE 72; RESP 18; TEMP 98.1; O2SAT 96
[2016-09-18] MEDS: LEVOTHYROXINE SODIUM 50 MCG TAB PO SCH (06:00)
[2016-09-18] MEDS: ATENOLOL 25 MG TAB PO SCH (08:42)
[2016-09-18] MEDS: ASPIRIN EC 81 MG TABEC PO SCH (08:42)
[2016-09-18] MEDS: CHOLECALCIFEROL (VIT D3) 1000 UNIT TAB PO SCH (08:42)
[2016-09-18] MEDS: amLODIPine BESYLATE 5 MG TAB PO SCH (08:43)
[2016-09-18] MEDS: HALOPERIDOL LACTATE ORAL CONC 10 MG/5 ML CUP PO SCH ×2 (12:00→17:27)
--- NOTE | 2016-09-18 16:01 | HHI.PYPN ---
Subjective Remarks Patient seen in dayroom of voices, patient is calm pleasant with me though at times somewhat confused. Poor towards evening. For now continue treatment no change Review of Systems Except as stated in HPI: all other systems reviewed are Neg Objective Alert: Yes [place]: Person, Place, Date Mood: Calm Affect: Restricted Memory Intact: Comment (impaired) Hallucinations: Other (none) Delusions: Yes Delusion Type: Paranoid (vaguely) Suicidal: Ideation (deneis any) Homicidal: Ideation (deneis any) Insight/Judgment Very poor Vitals/IOs Vital Signs Date Time Temp Pulse Resp B/P Pulse Ox O2 Delivery O2 Flow Rate FiO2 09/18/16 05:14 98.1 72 18 148/61 96 Intake and Output 09/17/16 09/17/16 09/18/16 08:00 16:00 00:00 Intake Total 480 ml Balance 480 ml Assessment & Plan Problem List: (1) Late onset Alzheimer's disease without behavioral disturbance ICD Code: G30.1 Assessment & Plan Estimated LOS: days patient continues pleasant though confused, no significant behavioral problems. Compliant medication Justification for Cont. Inpt. At this time patient will decompensate placed in a lower level of care Discharge Planning To be determined Request HC Surrog/Guard Advoc?: Yes Dennis Major MD Sep 18, 2016 16:01
[2016-09-18 18:00] VITALS: BP 147/70; PULSE 72; RESP 18; TEMP 98.1; O2SAT 96
[2016-09-18] MEDS: ATORVASTATIN 20 MG TAB PO SCH (20:51)
[2016-09-19 01:30] VITALS: BP 126/62; PULSE 76; RESP 12; TEMP 98.3; O2SAT 97
[2016-09-19 02:34] VITALS: BP 144/69; PULSE 78; RESP 15; TEMP 97.7; O2SAT 96
[2016-09-19 05:42] VITALS: BP 170/79; PULSE 80; RESP 14; TEMP 97.6; O2SAT 98
[2016-09-19] MEDS: LEVOTHYROXINE SODIUM 50 MCG TAB PO SCH (06:12)
[2016-09-19] MEDS: amLODIPine BESYLATE 5 MG TAB PO SCH (09:06)
[2016-09-19] MEDS: ATENOLOL 25 MG TAB PO SCH (09:06)
[2016-09-19] MEDS: CHOLECALCIFEROL (VIT D3) 1000 UNIT TAB PO SCH (09:06)
[2016-09-19] MEDS: ASPIRIN EC 81 MG TABEC PO SCH (09:06)
[2016-09-19 10:30] VITALS: BP 138/61; PULSE 65
[2016-09-19] MEDS: HALOPERIDOL LACTATE ORAL CONC 10 MG/5 ML CUP PO SCH ×2 (12:00→17:36)
[2016-09-19 14:19] VITALS: BP 116/61; PULSE 60
--- NOTE | 2016-09-19 15:34 | HHI.PYPN ---
Subjective Remarks Patient seen in day room with nurse Felicia, chart reviewed, patient compliant medications. Patient initially fairly, pleasant with me though when discussing discharge or need for appropriate placement she became more angry grabbing my hands amount leading to go. Patient still shows significant issues related to her short-term memory. Review of Systems Except as stated in HPI: all other systems reviewed are Neg Objective Alert: Yes [place]: Person, Place, Date Mood: Calm Affect: Restricted Memory Intact: Comment (impaired) Hallucinations: Other (none) Delusions: Yes Delusion Type: Paranoid (vaguely) Suicidal: Ideation (deneis any) Homicidal: Ideation (deneis any) Insight/Judgment Very poor Vitals/IOs Vital Signs Date Time Temp Pulse Resp B/P Pulse Ox O2 Delivery O2 Flow Rate FiO2 09/19/16 14:19 60 116/61 09/19/16 05:42 97.6 14 98 Intake and Output 09/18/16 09/18/16 09/19/16 08:00 16:00 00:00 Intake Total 240 ml 120 ml 100 ml Balance 240 ml 120 ml 100 ml Assessment & Plan Problem List: (1) Late onset Alzheimer's disease without behavioral disturbance ICD Code: G30.1 Assessment & Plan Estimated LOS: days patient continues confused demented with some lability and focusing on discharge issues placement Justification for Cont. Inpt. At this time patient decompensate the placed in a lower level of care Discharge Planning To be determined Request HC Surrog/Guard Advoc?: Yes Dennis Major MD Sep 19, 2016 15:34
[2016-09-19 18:05] VITALS: BP 117/54; PULSE 74; RESP 16; TEMP 96.9; O2SAT 99
[2016-09-19] MEDS: ATORVASTATIN 20 MG TAB PO SCH (22:06)
[2016-09-20 06:15] VITALS: BP 141/67; PULSE 65; RESP 14; TEMP 97; O2SAT 98
[2016-09-20] MEDS: LEVOTHYROXINE SODIUM 50 MCG TAB PO SCH (06:26)
[2016-09-20] MEDS: CHOLECALCIFEROL (VIT D3) 1000 UNIT TAB PO SCH (09:13)
[2016-09-20] MEDS: ATENOLOL 25 MG TAB PO SCH (09:15)
[2016-09-20] MEDS: ASPIRIN EC 81 MG TABEC PO SCH (09:15)
[2016-09-20] MEDS: amLODIPine BESYLATE 5 MG TAB PO SCH (09:16)
[2016-09-20] MEDS: HALOPERIDOL LACTATE ORAL CONC 10 MG/5 ML CUP PO SCH ×2 (13:30→18:00)
--- NOTE | 2016-09-20 14:26 | HHI.PYPN ---
Subjective Remarks Patient seen in her room with nurse Janet, chart reviewed patient compliant medication. Patient quietly in her room, it appears she had a visit with her daughter today that when quite well. Patient now appears to be processing and agreeing to placement and an [facility]. For now continue treatment Review of Systems Except as stated in HPI: all other systems reviewed are Neg Objective Alert: Yes [place]: Person, Place, Date Mood: Calm Affect: Restricted Memory Intact: Comment (impaired) Hallucinations: Other (none) Delusions: Yes Delusion Type: Paranoid (vaguely) Suicidal: Ideation (deneis any) Homicidal: Ideation (deneis any) Insight/Judgment Poor Vitals/IOs Vital Signs Date Time Temp Pulse Resp B/P Pulse Ox O2 Delivery O2 Flow Rate FiO2 09/20/16 06:15 97.0 65 14 141/67 98 Intake and Output 09/19/16 09/19/16 09/20/16 08:00 16:00 00:00 Intake Total 0 ml 1200 ml Balance 0 ml 1200 ml Assessment & Plan Problem List: (1) Late onset Alzheimer's disease without behavioral disturbance ICD Code: G30.1 Assessment & Plan Estimated LOS: days patient continues somewhat confused disoriented the calmer today less anger and irritability, seems to be accepting the placement in [facility] Justification for Cont. Inpt. At this time patient would take up to see if placed a lower level of care Discharge Planning To be determined Request HC Surrog/Guard Advoc?: Yes Dennis Major MD Sep 20, 2016 14:26
[2016-09-20 18:07] VITALS: BP 135/84; PULSE 69; RESP 17; TEMP 98.4; O2SAT 97
[2016-09-20] MEDS: ATORVASTATIN 20 MG TAB PO SCH (21:17)
[2016-09-21 05:55] VITALS: BP 128/60; PULSE 69; RESP 15; TEMP 97.3; O2SAT 96
[2016-09-21] MEDS: LEVOTHYROXINE SODIUM 50 MCG TAB PO SCH (06:31)
[2016-09-21] MEDS: ASPIRIN EC 81 MG TABEC PO SCH (09:05)
[2016-09-21] MEDS: CHOLECALCIFEROL (VIT D3) 1000 UNIT TAB PO SCH (09:05)
[2016-09-21] MEDS: amLODIPine BESYLATE 5 MG TAB PO SCH (09:05)
[2016-09-21] MEDS: ATENOLOL 25 MG TAB PO SCH (09:05)
[2016-09-21] MEDS: HALOPERIDOL LACTATE ORAL CONC 10 MG/5 ML CUP PO SCH ×2 (12:00→18:00)
--- NOTE | 2016-09-21 13:21 | HHI.PYPN ---
Subjective Remarks Patient was seen and case discussed with nursing. Patient is pleasant and cooperative with exam. Patient is engaging in the interview and is asking me what else she could do to improve her health. She is socializing well with others. Compliant with medications. She is alert and oriented 3 today. Thought process disorganized Objective Alert: Yes [place]: Person, Place, Date Mood: Calm Affect: Blunted Memory Intact: Comment (impaired) Hallucinations: Other (none) Delusions: Yes Delusion Type: Paranoid (none today) Suicidal: Ideation (deneis any) Homicidal: Ideation (deneis any) Insight/Judgment Poor Vitals/IOs Vital Signs Date Time Temp Pulse Resp B/P Pulse Ox O2 Delivery O2 Flow Rate FiO2 09/21/16 05:55 97.3 69 15 128/60 96 Intake and Output 09/20/16 09/20/16 09/21/16 08:00 16:00 00:00 Intake Total 120 ml 720 ml 240 ml Balance 120 ml 720 ml 240 ml Assessment & Plan Problem List: (1) Late onset Alzheimer's disease without behavioral disturbance ICD Code: G30.1 Assessment & Plan Continue current treatment plan Justification for Cont. Inpt. Patient will decompensate in a less restrictive setting Request HC Surrog/Guard Advoc?: Yes Naveed Farah DO Sep 21, 2016 13:21
[2016-09-21 18:13] VITALS: BP 135/63; PULSE 62; RESP 16; TEMP 97.5; O2SAT 96
[2016-09-21] MEDS: ATORVASTATIN 20 MG TAB PO SCH (20:55)
[2016-09-22] MEDS: LEVOTHYROXINE SODIUM 50 MCG TAB PO SCH (06:19)
[2016-09-22 06:43] VITALS: BP 155/68; PULSE 75; RESP 16; TEMP 98.4; O2SAT 96
[2016-09-22] MEDS: amLODIPine BESYLATE 5 MG TAB PO SCH (08:36)
[2016-09-22] MEDS: ATENOLOL 25 MG TAB PO SCH (08:36)
[2016-09-22] MEDS: ASPIRIN EC 81 MG TABEC PO SCH (08:36)
[2016-09-22] MEDS: CHOLECALCIFEROL (VIT D3) 1000 UNIT TAB PO SCH (08:36)
[2016-09-22] MEDS: HALOPERIDOL LACTATE ORAL CONC 10 MG/5 ML CUP PO SCH ×2 (12:00→18:00)
--- NOTE | 2016-09-22 13:20 | HHI.PYPN ---
Subjective Remarks Patient was seen and case discussed with nursing. Patient is alert and oriented 2. Dressed nicely and is well-kept. Continues to ask about discharge. Says she is considering an assisted living facility. She is eating and sleeping well. She is compliant with her medications. Says that her mood is "sad, anxious." Affect is not congruent. Denies suicidal ideation intent or plan Objective Alert: Yes [place]: Person, Place Mood: Calm Affect: Restricted Memory Intact: Comment (impaired) Hallucinations: Other (none) Delusions: Yes Delusion Type: Paranoid (none today) Suicidal: Ideation (deneis any) Homicidal: Ideation (deneis any) Insight/Judgment Poor Vitals/IOs Vital Signs Date Time Temp Pulse Resp B/P Pulse Ox O2 Delivery O2 Flow Rate FiO2 09/22/16 06:43 98.4 75 16 155/68 96 Intake and Output 09/21/16 09/21/16 09/22/16 08:00 16:00 00:00 Intake Total 360 ml Balance 360 ml Assessment & Plan Problem List: (1) Late onset Alzheimer's disease without behavioral disturbance ICD Code: G30.1 Assessment & Plan Continue current treatment plan Justification for Cont. Inpt. Pt would decompensate in a less restrictive setting Request HC Surrog/Guard Advoc?: Yes Naveed Farah DO Sep 22, 2016 13:20
[2016-09-22 18:00] VITALS: BP 164/75; PULSE 65; RESP 18; TEMP 96.8; O2SAT 96
[2016-09-22] MEDS: ATORVASTATIN 20 MG TAB PO SCH (20:55)
[2016-09-23] MEDS: LEVOTHYROXINE SODIUM 50 MCG TAB PO SCH (05:56)
[2016-09-23] MEDS: ASPIRIN EC 81 MG TABEC PO SCH (08:44)
[2016-09-23] MEDS: amLODIPine BESYLATE 5 MG TAB PO SCH (08:44)
[2016-09-23] MEDS: CHOLECALCIFEROL (VIT D3) 1000 UNIT TAB PO SCH (08:44)
[2016-09-23] MEDS: ATENOLOL 25 MG TAB PO SCH (08:44)
--- NOTE | 2016-09-23 11:04 | PD.TTN ---
Present for Treatment Team Treatment Team Staff: Provider (Dr. Major), Nurse (Darvin), Occupational Therapist (Tori) Patient Problems 1. Discharge planning 2. Medication compliance 3. Knowledge deficit 4. Lack of coping skills Progress Toward Goals Provider Input: Dr. Major inquired regarding the status of patient's placement. Nurse Input: Nurse Darvin reported the patient remains compliant with medications, sweet, and polite on the unit. Psych Therapist Input: Counselor reported the patient remains in good behavioral control, compliant with medications, and discharged focused. Patient continues to lack insight into her Dementia and believes she can live alone and care for herself appropriately. Patient appears more open to the idea of placement. Documentation Scribe: VENKATA Polk Date Resolved: Sep 23, 2016 Lorna BasurtoSepideh Sep 23, 2016 11:04
[2016-09-23] MEDS: HALOPERIDOL LACTATE ORAL CONC 10 MG/5 ML CUP PO SCH ×2 (12:07→18:00)
--- NOTE | 2016-09-23 16:54 | HHI.PYPN ---
Subjective Remarks Patient seen in day room with medical student Tanmay, chart review, patient compliant medication. Patient continue somewhat confused and disoriented though more pleasant and appears to be consistent in willingness to go to when [facility]. For now continue treatment Review of Systems Except as stated in HPI: all other systems reviewed are Neg Objective Alert: Yes [place]: Person, Place Mood: Calm Affect: Restricted Memory Intact: Comment (impaired) Hallucinations: Other (none) Delusions: Yes Delusion Type: Paranoid (none today) Suicidal: Ideation (deneis any) Homicidal: Ideation (deneis any) Insight/Judgment Very poor Vitals/IOs Vital Signs Date Time Temp Pulse Resp B/P Pulse Ox O2 Delivery O2 Flow Rate FiO2 09/22/16 18:00 96.8 65 18 164/75 96 Intake and Output 09/22/16 09/22/16 09/23/16 08:00 16:00 00:00 Intake Total 2040 ml 530 ml Output Total 1080 ml Balance 960 ml 530 ml Assessment & Plan Problem List: (1) Late onset Alzheimer's disease without behavioral disturbance ICD Code: G30.1 Assessment & Plan Estimated LOS: days patient continues demented and confused though calmer less paranoid and more cooperative. For now continue treatment Justification for Cont. Inpt. At this time patient will decompensate if placed in a lower level of care Discharge Planning To be determined Request HC Surrog/Guard Advoc?: Yes Dennis Major MD Sep 23, 2016 16:54
[2016-09-23 19:00] VITALS: BP 130/60; PULSE 65; RESP 17; TEMP 96.8; O2SAT 99
[2016-09-23] MEDS: ATORVASTATIN 20 MG TAB PO SCH (21:17)
[2016-09-24 06:00] VITALS: BP 117/63; PULSE 84; RESP 16; TEMP 96.8
[2016-09-24] MEDS: LEVOTHYROXINE SODIUM 50 MCG TAB PO SCH (06:01)
[2016-09-24] MEDS: CHOLECALCIFEROL (VIT D3) 1000 UNIT TAB PO SCH (08:34)
[2016-09-24] MEDS: amLODIPine BESYLATE 5 MG TAB PO SCH (08:34)
[2016-09-24] MEDS: ATENOLOL 25 MG TAB PO SCH (08:34)
[2016-09-24] MEDS: ASPIRIN EC 81 MG TABEC PO SCH (08:34)
[2016-09-24] MEDS: HALOPERIDOL LACTATE ORAL CONC 10 MG/5 ML CUP PO SCH ×2 (12:12→17:16)
--- NOTE | 2016-09-24 14:53 | HHI.PYPN ---
Subjective Remarks Patient seen in dayroom of course if, patient chart review, patient alert calm pleasant now is willing to go to when [facility]. It appears patient has been interviewed by [facility] they've accepted her there is a bed available on Review of Systems Except as stated in HPI: all other systems reviewed are Neg Objective Alert: Yes [place]: Person, Place Mood: Calm Affect: Restricted Memory Intact: Comment (impaired) Hallucinations: Other (none) Delusions: Yes Delusion Type: Paranoid (none today) Suicidal: Ideation (deneis any) Homicidal: Ideation (deneis any) Insight/Judgment Poor Vitals/IOs Vital Signs Date Time Temp Pulse Resp B/P Pulse Ox O2 Delivery O2 Flow Rate FiO2 09/24/16 06:00 96.8 84 16 117/63 09/23/16 19:00 99 Intake and Output 09/23/16 09/23/16 09/24/16 08:00 16:00 00:00 Intake Total 240 ml Balance 240 ml Assessment & Plan Problem List: (1) Late onset Alzheimer's disease without behavioral disturbance ICD Code: G30.1 Assessment & Plan Estimated LOS: days patient continues confused and demented, though her irritability vigilance has softened she is now accepting of placement probably on 09/26 Justification for Cont. Inpt. At this time patient will decompensate if placed in a lower level of care Discharge Planning To be determined Request HC Surrog/Guard Advoc?: Yes Dennis Major MD Sep 24, 2016 14:53
[2016-09-24 19:45] VITALS: BP 120/58; PULSE 69; RESP 17; TEMP 98.3
[2016-09-24] MEDS: ATORVASTATIN 20 MG TAB PO SCH (20:53)
[2016-09-25 05:56] VITALS: BP 125/75; PULSE 78; RESP 18; TEMP 97.3
[2016-09-25] MEDS: LEVOTHYROXINE SODIUM 50 MCG TAB PO SCH (06:18)
[2016-09-25] MEDS: ATENOLOL 25 MG TAB PO SCH (09:00)
[2016-09-25] MEDS: CHOLECALCIFEROL (VIT D3) 1000 UNIT TAB PO SCH (09:37)
[2016-09-25] MEDS: ASPIRIN EC 81 MG TABEC PO SCH (09:38)
[2016-09-25] MEDS: amLODIPine BESYLATE 5 MG TAB PO SCH (09:38)
[2016-09-25] MEDS: HALOPERIDOL LACTATE ORAL CONC 10 MG/5 ML CUP PO SCH ×2 (12:53→17:23)
--- NOTE | 2016-09-25 16:12 | HHI.PYPN ---
Subjective Remarks Patient seen in her room with nurse Jaylyn and counselor Lorna. It appears patient continues to be willing to go to a local PRISON. [facility] has except patient tomorrow. We did share with her the fact that this is a voluntary placement and that she would have to sign voluntary papers at that facility she is willing to do this. She is aware of the fact that sign voluntary papers does not mean that she is bound to stay there for an extended period of time. Otherwise patient compliant medications does denies suicidality homicidality voices or visions. Us unless something untoward happens will discharge the patient tomorrow to [facility] Review of Systems Except as stated in HPI: all other systems reviewed are Neg Objective Alert: Yes [place]: Person, Place Mood: Calm Affect: Restricted Memory Intact: Comment (impaired) Hallucinations: Other (none) Delusions: Yes Delusion Type: Paranoid (none today) Suicidal: Ideation (deneis any) Homicidal: Ideation (deneis any) Insight/Judgment Poor Vitals/IOs Vital Signs Date Time Temp Pulse Resp B/P Pulse Ox O2 Delivery O2 Flow Rate FiO2 09/25/16 05:56 97.3 78 18 125/75 09/23/16 19:00 99 Assessment & Plan Problem List: (1) Late onset Alzheimer's disease without behavioral disturbance ICD Code: G30.1 Assessment & Plan Estimated LOS: days patient continue somewhat confused and demented, though calm cooperative. Compliant medications. Appears willing to sign voluntarily at [facility] with the next 1-2 days Justification for Cont. Inpt. At this time patient will decompensate in place to the lower level of care Discharge Planning To be determined Request HC Surrog/Guard Advoc?: Yes Dennis Major MD Sep 25, 2016 16:12
[2016-09-25 18:00] VITALS: BP 170/98; PULSE 70; RESP 18; TEMP 97.1; O2SAT 98
[2016-09-25] MEDS: ATORVASTATIN 20 MG TAB PO SCH (21:45)
[2016-09-26 05:11] VITALS: BP 145/65; PULSE 72; RESP 16; TEMP 96.8
[2016-09-26] MEDS: LEVOTHYROXINE SODIUM 50 MCG TAB PO SCH (05:55)
[2016-09-26] MEDS: ASPIRIN EC 81 MG TABEC PO SCH (10:06)
[2016-09-26] MEDS: amLODIPine BESYLATE 5 MG TAB PO SCH (10:06)
[2016-09-26] MEDS: ATENOLOL 25 MG TAB PO SCH (10:06)
[2016-09-26] MEDS: CHOLECALCIFEROL (VIT D3) 1000 UNIT TAB PO SCH (10:06)
--- NOTE | 2016-09-26 11:02 | HHI.PYPN ---
Subjective Remarks Patient seen in day room with nurse Nina medical student, chart review, patient compliant medications. Patient continues pleasantly confused, no behavioral problems, continues to be willing to go to [facility] on a voluntary basis. For now continue treatment Review of Systems Except as stated in HPI: all other systems reviewed are Neg Objective Alert: Yes [place]: Person, Place Mood: Calm Affect: Restricted Memory Intact: Comment (impaired) Hallucinations: Other (none) Delusions: Yes Delusion Type: Paranoid (none today) Suicidal: Ideation (deneis any) Homicidal: Ideation (deneis any) Insight/Judgment Poor Vitals/IOs Vital Signs Date Time Temp Pulse Resp B/P Pulse Ox O2 Delivery O2 Flow Rate FiO2 09/26/16 05:11 96.8 72 16 145/65 09/25/16 18:00 98 Intake and Output 09/25/16 09/25/16 09/26/16 08:00 16:00 00:00 Intake Total 360 ml 480 ml Balance 360 ml 480 ml Assessment & Plan Problem List: (1) Late onset Alzheimer's disease without behavioral disturbance ICD Code: G30.1 Assessment & Plan Estimated LOS: days patient continues dementia confused though no behavior problems. Continues willing to go voluntarily to [facility] Justification for Cont. Inpt. At this time patient will decompensate placed in a lower level of care Discharge Planning To be determined Request HC Surrog/Guard Advoc?: Yes Dennis Major MD Sep 26, 2016 11:02
[2016-09-26] MEDS: HALOPERIDOL LACTATE ORAL CONC 10 MG/5 ML CUP PO SCH ×2 (12:00→18:28)
[2016-09-26 18:00] VITALS: BP 159/72; PULSE 65; RESP 16; TEMP 97.8; O2SAT 96
[2016-09-26] MEDS: ATORVASTATIN 20 MG TAB PO SCH (20:57)
[2016-09-27] MEDS: LEVOTHYROXINE SODIUM 50 MCG TAB PO SCH (05:54)
[2016-09-27 06:19] VITALS: BP 131/77; PULSE 77; RESP 17; TEMP 97.5; O2SAT 93
[2016-09-27] MEDS: ATENOLOL 25 MG TAB PO SCH (09:00)
[2016-09-27] MEDS: amLODIPine BESYLATE 5 MG TAB PO SCH (09:00)
[2016-09-27] MEDS: CHOLECALCIFEROL (VIT D3) 1000 UNIT TAB PO SCH (09:00)
[2016-09-27] MEDS: ASPIRIN EC 81 MG TABEC PO SCH (09:00)
--- NOTE | 2016-09-27 10:45 | HHI.PYPN ---
Subjective Remarks Patient seen in day room with nurse Steven and medical student aTnmay, chart review, patient calm cooperative pleasantly confused. Continues be willing to go to [facility]. It appears they will be a room available at [facility] on Friday. Patient to be discharged on that they have a something significantly untoward happens Review of Systems Except as stated in HPI: all other systems reviewed are Neg Objective Alert: Yes [place]: Person, Place Mood: Calm Affect: Restricted Memory Intact: Comment (impaired) Hallucinations: Other (none) Delusions: Yes Delusion Type: Paranoid (none today) Suicidal: Ideation (deneis any) Homicidal: Ideation (deneis any) Insight/Judgment Poor Vitals/IOs Vital Signs Date Time Temp Pulse Resp B/P Pulse Ox O2 Delivery O2 Flow Rate FiO2 09/27/16 06:19 97.5 77 17 131/77 93 Intake and Output 09/26/16 09/26/16 09/27/16 08:00 16:00 00:00 Intake Total 600 ml 240 ml 120 ml Balance 600 ml 240 ml 120 ml Assessment & Plan Problem List: (1) Late onset Alzheimer's disease without behavioral disturbance ICD Code: G30.1 Assessment & Plan Estimated LOS: days patient continues confused demented though most given behavior problems. It appears placement should be available on Saturday 09/30 Justification for Cont. Inpt. Discharge plans 09/30 when bed available at [facility] Discharge Planning To be determined Request HC Surrog/Guard Advoc?: Yes Dennis Major MD Sep 27, 2016 10:45
[2016-09-27] MEDS: HALOPERIDOL LACTATE ORAL CONC 10 MG/5 ML CUP PO SCH ×2 (12:24→18:34)
[2016-09-27 18:29] VITALS: BP 121/62; PULSE 64; RESP 16; TEMP 97.4; O2SAT 96
[2016-09-27] MEDS: ATORVASTATIN 20 MG TAB PO SCH (21:52)
[2016-09-28 06:00] VITALS: BP_SYST 121; BP_SYST 132; BP_DIAS 62; BP_DIAS 67; PULSE 64; PULSE 70; RESP 15; RESP 16; TEMP 97.4; TEMP 97.7; O2SAT 95; O2SAT 96
[2016-09-28] MEDS: LEVOTHYROXINE SODIUM 50 MCG TAB PO SCH (06:03)
[2016-09-28] MEDS: ASPIRIN EC 81 MG TABEC PO SCH (10:16)
[2016-09-28] MEDS: amLODIPine BESYLATE 5 MG TAB PO SCH (10:17)
[2016-09-28] MEDS: CHOLECALCIFEROL (VIT D3) 1000 UNIT TAB PO SCH (10:17)
[2016-09-28] MEDS: ATENOLOL 25 MG TAB PO SCH (10:18)
[2016-09-28] MEDS: HALOPERIDOL LACTATE ORAL CONC 10 MG/5 ML CUP PO SCH ×2 (12:29→18:39)
--- NOTE | 2016-09-28 12:52 | HHI.PYPN ---
Subjective Remarks Pt seen and discussed with staff. She has been calm and pleasant today. Oriented to self and place,but not date/time or situation. Tolerating medications without side effects.She is looking forward to placement. Objective Alert: Yes [place]: Person, Place Mood: Calm Affect: Restricted Memory Intact: Comment (impaired) Hallucinations: Other (none) Delusions: No Delusion Type: Other (none) Suicidal: Ideation (deneis any) Homicidal: Ideation (deneis any) Insight/Judgment poor Vitals/IOs Vital Signs Date Time Temp Pulse Resp B/P Pulse Ox O2 Delivery O2 Flow Rate FiO2 09/28/16 06:00 97.7 70 15 132/67 95 Intake and Output 09/27/16 09/27/16 09/28/16 08:00 16:00 00:00 Intake Total 480 ml 960 ml Balance 480 ml 960 ml Assessment & Plan Problem List: (1) Late onset Alzheimer's disease without behavioral disturbance ICD Code: G30.1 Assessment & Plan Continue current tx plan. Estimated LOS: days Justification for Cont. Inpt. risk of decompensation Request HC Surrog/Guard Advoc?: Yes Eri Quiles MD Sep 28, 2016 12:52
[2016-09-28 18:00] VITALS: BP 178/82; PULSE 74; TEMP 98.8; O2SAT 97
[2016-09-28] MEDS: ATORVASTATIN 20 MG TAB PO SCH (21:17)
[2016-09-29 05:39] VITALS: BP 141/65; PULSE 65; RESP 18; TEMP 98.4
[2016-09-29] MEDS: LEVOTHYROXINE SODIUM 50 MCG TAB PO SCH (06:21)
[2016-09-29] MEDS: ASPIRIN EC 81 MG TABEC PO SCH (10:08)
[2016-09-29] MEDS: CHOLECALCIFEROL (VIT D3) 1000 UNIT TAB PO SCH (10:08)
[2016-09-29] MEDS: ATENOLOL 25 MG TAB PO SCH (10:08)
[2016-09-29] MEDS: amLODIPine BESYLATE 5 MG TAB PO SCH (10:09)
--- NOTE | 2016-09-29 11:33 | HHI.PYPN ---
Subjective Remarks Pt seen and discussed with staff. She remains isolative to her room but has not had any behavioral problems. Cooperative with care and compliant with medications. No SI/HI Objective Alert: Yes [place]: Person, Place Mood: Calm Affect: Restricted Memory Intact: Comment (impaired) Hallucinations: Other (none) Delusions: No Delusion Type: Other (none) Suicidal: Ideation (deneis any) Homicidal: Ideation (deneis any) Insight/Judgment poor Vitals/IOs Vital Signs Date Time Temp Pulse Resp B/P Pulse Ox O2 Delivery O2 Flow Rate FiO2 09/29/16 05:39 98.4 65 18 141/65 09/28/16 18:00 97 Intake and Output 09/28/16 09/28/16 09/29/16 08:00 16:00 00:00 Intake Total 240 ml 240 ml 480 ml Balance 240 ml 240 ml 480 ml Assessment & Plan Problem List: (1) Late onset Alzheimer's disease without behavioral disturbance ICD Code: G30.1 Assessment & Plan Continue current tx plan. Estimated LOS: days Justification for Cont. Inpt. risk of decompensation Request HC Surrog/Guard Advoc?: Yes Eri Quiles MD Sep 29, 2016 11:33
[2016-09-29] MEDS: HALOPERIDOL LACTATE ORAL CONC 10 MG/5 ML CUP PO SCH ×2 (13:01→18:10)
[2016-09-29] MEDS: ATORVASTATIN 20 MG TAB PO SCH (21:36)
[2016-09-29] MEDS: LORazepam 0.5 MG TAB PO PRN (22:49)
[2016-09-30 05:31] VITALS: BP 135/63; PULSE 92; RESP 16; TEMP 97.5; O2SAT 96
[2016-09-30] MEDS: LEVOTHYROXINE SODIUM 50 MCG TAB PO SCH (05:50)
[2016-09-30] MEDS: ATENOLOL 25 MG TAB PO SCH (09:28)
[2016-09-30] MEDS: ASPIRIN EC 81 MG TABEC PO SCH (09:28)
[2016-09-30] MEDS: CHOLECALCIFEROL (VIT D3) 1000 UNIT TAB PO SCH (09:28)
[2016-09-30] MEDS: amLODIPine BESYLATE 5 MG TAB PO SCH (09:29)
[2016-09-30] MEDS ORDERED: ATEN25TA PO (11:12)
[2016-09-30] MEDS ORDERED: VITA1000 PO (11:12)
[2016-09-30] MEDS ORDERED: ATOR20TA15 PO (11:12)
[2016-09-30] MEDS ORDERED: ASPI-99 PO (11:12)
[2016-09-30] MEDS ORDERED: AMLO5 PO (11:12)
[2016-09-30] MEDS ORDERED: HALO2S PO (11:12)
[2016-09-30] MEDS ORDERED: LEVO.05 PO (11:12)
--- NOTE | 2016-09-30 11:19 | HHI.DS ---
Psychiatry Discharge Summary Inpatient Psychiatric care?: Yes Advance Directive: No Reason Not Provided: gave [facility] AdvanceDirective: No Health Care Proxy: No Admission Admission Date September 04, 2016 at 12:37 Admission Diagnosis: (1) Late onset Alzheimer's disease without behavioral disturbance ICD Code: G30.[address] Major's H&P: Patient is an 89-year-old white female who comes here under an ex parte follow- up by her daughter and signed by [employer] [facility] from [facility]. The document reviewed. Essentially stating that patient show deterioration in her behavior ability to care for herself during risky behaviors with people in the neighborhood. Continuing her driving. And also mentioning gambling addiction. Patient seen screened in the ED urine toxicology negative, however UA was positive patient will be treated for UTI. At the present time patient sitting quietly in the day room RN present throughout session patient is a calm cooperative is somewhat guarded in feisty white female appears younger than her stated age. Patient is oriented to person place she noises she is an [facility] with his [facility]. She knows that is 2016 and September 05. She no she lives in [place]. She shows some mild confusion as to what led to this hospitalization. It appears per the ex parte the patient fell some Time ago and she seems to be somewhat confused with that time line. She denies suicidality homicidality voices or visions. She denies any prior psychiatric contact hospitalization his psychotropic medication she denies any drug use. Though vaguely acknowledges some past alcohol use including an occasional glass of wine after dinner at this time. She appears quite adamant about wanting to live on her own driving her car and taking care of herself. 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 She states she had 3 children a daughter and 2 sons. The 2 sons are the daughter lives in [place] and appears to have done the ex parte. Patient does deny any physical or sexual abuse. Or any significant trauma. In any event at the present time patient showing some vague diffuse confusion irritability and perhaps confabulation. We need to get further information concerning this lady. At this time I feel she does not have capacity thus I will do first opinion petition supporting [place] act I will also do a health care surrogate and guardian advocate. We will have the nursing staff contact patient's daughter to arrange for a family meeting tomorrow morning. We'll also the hospitalist consult with us On my examination today: Patient seen and examined. Chart reviewed. Case discussed with nursing staff. On my examination today, the patient presents as extremely irritable. She speaks through gritted teeth. She tells me "this is an absolute waste! They' re making a fernando!" When I ask who is doing so, she replies, "the one who's one hand is handling the other." Affect is extremely dysphoric. She denies any suicidal or homicidal ideation but seems unreliable to contract for safety. She denies any audiovisual hallucinations. She is fairly paranoid. Psychiatric interview is somewhat limited by patient's irritability. Later, on the unit, the patient tries to escape through the exit door when I am returning to the unit. She then pursues me down the hallway and tries to get into the nursing station. Past psychiatric history: The patient is likely an unreliable historian but denies any history of inpatient or outpatient psychiatric treatment or psychiatric diagnosis. She denies any history of suicide attempts. Family history: The patient denies any family history of mental illness. Chemical dependency history: Patient reports only a glass of wine at dinner occasionally. She denies any other substance use. Social history: The patient reports that she lives alone. She is . She has a daughter who is a nurse and 2 other daughters who are . She is college educated. She previously worked for [employer]. Tobacco Use In Past 30 Days: No Tobacco Past 30 Days Alcohol Use: 4 or More Times Per Week Hospital Course Patient's initial irritability intrusiveness and exits seeking slowly resolved with her accommodating to the milieu and response to our interventions by floor staff. Once the Haldol was initiated when also saw marked improvement in behavior she remained alert calm and quite pleasant patient continues compliant with medication, denies suicidality homicidality voices or visions. She has been accepted at [facility] today. Patient a longer meets criteria for inpatient psychiatric hospitalization thus your be discharged today to that facility with Rx 1 month, follow-up until health services through that facility Results Blood Pressure 135 / 63 Vital Signs Date Time Temp Pulse Resp B/P Pulse Ox O2 Delivery O2 Flow Rate FiO2 09/30/16 05:31 97.5 92 16 135/63 96 Urine toxicology negative Summary of Procedures None done Pending results at discharge: No Medications # of Antipsychotic meds at D/C: 1 Approp Antipsych med options 1 - Minimum of three failed multiple trials of monotherapy. 2 - Documented plan to taper to monotherapy due to previous use of multiple meds OR cross-taper in progress at D/C. 3 - Documentation of augmentation of Clozapine. 4 - Justification other than those listed in allowable values 1-3, document here : Discharge Discharge Date: Sep 30, 2016 Discharge Diagnosis: (1) Late onset Alzheimer's disease without behavioral disturbance Diagnosis: Principal ICD Code: G30.1 Mental Status Exam at Disch Alert pleasant white female appears stated age, she is normal active. Mood is euthymic to mildly anxious with good range and intensity of the affect. Speech rate and rhythm are within normal limits is mildly tangential circumstantial. There are no auditory or visual hallucinations no delusions. Insight and judgment is poor cognition is limited Pt Condition on Discharge: Deteriorating Discharge Disposition: Discharge to SNF Discharge Instructions Diet Instructions: As Tolerated, No Restrictions Activities you can perform: Regular-No Restrictions Scheduled Appointment: [facility] carroll Discharge Time > 30 minutes Discharge/Advance Care Plan Health Problems: (1) Late onset Alzheimer's disease without behavioral disturbance Goals to promote your health * To prevent worsening of your condition and complications * To maintain your health at the optimal level Directions to meet your goals Take your medications as prescribed Follow your dietary instruction Follow activity as directed Keep your appointments as scheduled Take your immunizations and boosters as scheduled If your symptoms worsen call your PCP, if no PCP go to Urgent Care Center or Emergency Room For 28/10 questions related to your inpatient stay or results of tests pending at discharge, please contact Dr. Dennis Major at Smoking is Dangerous to Your Health. Avoid second hand smoking Dennis Major MD Sep 30, 2016 11:19
--- NOTE | 2016-09-30 11:54 | PD.TTN ---
Present for Treatment Team Treatment Team Staff: Provider (Dr. knowles), Psych Therapist (Lorna Basurto), Occupational Therapist (Dylon) Patient Problems 1. Discharge planning 2. Medication compliance 3. Knowledge deficit 4. Lack of coping skills Progress Toward Goals Provider Input: reported the patient's mental status remains unchanged. Patient remains compliant with medication and treatment and in good behavioral control. Psych Therapist Input: Counselor reported the patient will be discharged to [facility] for long-term care. Occupational Therapist Input: Dylon reported the patient is not participating in therapeutic groups or activities. Documentation Scribe: MELONY PolkSepideh Date Resolved: Sep 30, 2016 [facility] Basurto [facility] Sep 30, 2016 11:54
[2016-09-30] MEDS: HALOPERIDOL LACTATE ORAL CONC 10 MG/5 ML CUP PO SCH (12:00)
== END 2016-09-30 15:02 | DRG 57 ==
LOC: NEPD 03:36 → NEDA 12:37 → H250 12:45
PROVIDERS: ADMIT Psychiatry & Neurology Psychiatry; ATTEND Psychiatry & Neurology Psychiatry
DX: G30.1 Alzheimer's disease with late onset (principal); N17.9 Acute kidney failure, unspecified; E46 Unspecified protein-calorie malnutrition; N39.0 Urinary tract infection, site not specified; Z68.1 Body mass index [BMI] 19.9 or less, adult; Z79.82 Long term (current) use of aspirin; I10 Essential (primary) hypertension; E03.9 Hypothyroidism, unspecified; Z91.14 Patient's other noncompliance with medication regimen; M19.079 Primary osteoarthritis, unspecified ankle and foot; E78.5 Hyperlipidemia, unspecified; I35.0 Nonrheumatic aortic (valve) stenosis; I25.10 Atherosclerotic heart disease of native coronary artery without angina pectoris; E55.9 Vitamin D deficiency, unspecified
CPT/HCPCS: 80048; 80053; 80061; 80307; 81001; 82306; 82607; 83036; 84439; 84443; 85025; 87086; 93005; 99285; J1630; Q0163